=== PATIENT | female | born 1995 | race Caucasian/White ===

== ENCOUNTER 2016-08-24 23:17 | Inpatient (IN) | payer OTHER ==
[~2016-08-24] VITALS: Ht 154.9 cm; Wt 93.4 kg
[2016-08-24 20:17] VITALS: O2SAT 100
[2016-08-24 23:17] VITALS: O2SAT 100
[2016-08-24] MEDS ORDERED: PROPOFOL 1000 MG/100 ML INJ 100 ML ONE (23:23)
[2016-08-24 23:38] VITALS: O2SAT 100
[2016-08-24 23:55] LABS: I-STAT POTASSIUM 3.3 MMOL/L (3.5-4.9); I-STAT SODIUM 145 MMOL/L (138-146)
[2016-08-25] VITALS (24 sets, daily range): BP systolic 105–128; BP diastolic 52–70; PULSE 92–116; RESP 12–18; TEMP 96.8–100.3; O2SAT 99–100
[2016-08-25 00:01] LABS: AUTOMATED NEUTROPHIL # 22.1 TH/MM3 (1.8-7.7); BASOPHIL # 0.1 TH/MM3 (0-0.2); BASOPHIL % 0.3 % (0.0-2.0); EOSINOPHIL # 0.3 TH/MM3 (0-0.4); EOSINOPHIL % 1.1 % (0.0-4.0); HEMATOCRIT 39.5 % (35.0-46.0); LYMPH % 18.2 % (9.0-44.0); LYMPHOCYTE # 5.5 TH/MM3 (1.0-4.8); MEAN CELL VOLUME 85.8 FL (80.0-100.0); MEAN CORPUSCULAR HEMOGLOBIN 28.8 PG (27.0-34.0); MEAN CORPUSCULAR HGB CONC 33.6 % (32.0-36.0); MONO % 6.3 % (0.0-8.0); NEUT % 74.1 % (16.0-70.0); PLATELET COUNT 368 TH/MM3 (150-450); RED BLOOD COUNT 4.61 MIL/MM3 (4.00-5.30); RED CELL DISTRIBUTION WIDTH 13.4 % (11.6-17.2); WHITE BLOOD COUNT 29.9 TH/MM3 (4.0-11.0)
[2016-08-25 00:05] LABS: APTT (PATIENT) 27.4 SEC (24.3-30.1); PROTHROMBIN TIME - PATIENT 10.7 SEC (9.8-11.6)
[2016-08-25] MEDS ORDERED: IOHEXOL 350 MG/ML 10 ML VIAL (for RAD DIAG) IV ONE (00:06)
[2016-08-25 00:09] LABS: HEMO FLAGS AUTO DIFF
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
[2016-08-25] MEDS: SODIUM CHLOR 0.9% 1000 ML INJ 1,000 ML IV SCH ×4 (00:36→20:00)
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
[2016-08-25 00:38] LABS: BANDS 5 % (0-6); BASOPHILS 1 % (0-2); NEUTROPHIL # MANUAL DIFF 19.7 TH/MM3 (1.8-7.7); POLYS (SEG NEUTROPHILS) 61 % (16-70); WBC DIFF SAMPLE 100
[2016-08-25 00:41] LABS: SCAN/DIFF FINAL DIFF MANUAL
[2016-08-25 00:42] LABS: PLATELET ESTIMATE SMEAR NORMAL (NORMAL); PLATELET MORPHOLOGY NORMAL (NORMAL)
[2016-08-25] MEDS ORDERED: ONDANSETRON HCL 4 MG/2 ML VIAL IV PRN (00:45)
[2016-08-25] MEDS ORDERED: MAGNESIUM HYDROXIDE SUSP 30 ML CUP PO PRN (00:45)
[2016-08-25] MEDS ORDERED: ENALAPRILAT 1.25 MG/ML VIAL IV PRN (00:45)
[2016-08-25] MEDS ORDERED: MISCELLANEOUS NURSING INFORMATION XX SCH (00:45)
[2016-08-25] MEDS ORDERED: SODIUM CHLORIDE 0.9% FLUSH 10 ML FLUSH IV FLUSH PRN (00:45)
[2016-08-25] MEDS ORDERED: CHLORHEXIDINE GLUCONATE 2 % 1 PACK (2 CLOTHS) TOP PRN (00:45)
[2016-08-25] MEDS: fentaNYL DRIP 250 ML IV SCH (00:51)
[2016-08-25 01:16] LABS: BLOOD GAS BASE EXCESS -3.1 mmol/L (-2-2); BLOOD GAS CARBOXYHEMOGLOBIN 0.8 % (0-4); BLOOD GAS HCO3 21 mmol/L (22-26); BLOOD GAS O2 HGB SATURATION 98 % (90-100); BLOOD GAS OXYGEN CONTENT 17.6 Vol % (12.0-20.0); BLOOD GAS PCO2 34 mmHg (38-42); BLOOD GAS PO2 395 mmHg (61-120); CRITICAL VALUE NO; OXYGEN DEVICE VENTILATOR; TEMP CORR TO 98.6
[2016-08-25 01:17] LABS: DRAW SITE LT BRACHIAL; FIO2 100 %; NUMBER OF ARTERIAL PUNCTURES 1; STAT NO; ULNAR PULSE PRESENT; VENT SETTINGS PRVC/COMMENT
[2016-08-25] MEDS ORDERED: ACETAMINOPHEN 1000 MG/100 ML VIAL IV ONE (01:30)
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
[2016-08-25] MEDS ORDERED: MAGNESIUM SULFATE INJ 2 GM in SODIUM CHLORIDE 0.9% INJ 96 ML IV PRN (02:30)
[2016-08-25] MEDS ORDERED: POTASSIUM PHOSPHATE MONOBASIC 500 MG TAB PO PRN (02:30)
[2016-08-25] MEDS ORDERED: POTASSIUM PHOSPHATE MONOBASIC 500 MG TAB PO/TUBE PRN (02:30)
[2016-08-25] MEDS ORDERED: SODIUM PHOSPHATE INJ 30 MMOL in SODIUM CHLOR 0.9% 250 ML INJ 240 ML IV PRN (02:30)
[2016-08-25] MEDS ORDERED: MAGNESIUM OXIDE 400 MG TAB PO PRN (02:30)
[2016-08-25] MEDS ORDERED: POTASSIUM CHLORIDE 25 MEQ EFFERVESCENT TAB PO PRN (02:30)
[2016-08-25] MEDS ORDERED: POTASSIUM CHLOR 20 MEQ PREMIX 100 ML IV PRN ×2 (02:30)
[2016-08-25] MEDS ORDERED: MAGNESIUM SULFATE INJ 4 GM in SODIUM CHLORIDE 0.9% INJ 92 ML IV PRN (02:30)
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
[2016-08-25 02:36] LABS: AMPHETAMINE, URINE NEG (NEG); BARBITURATES, URINE NEG (NEG); COCAINE, URINE NEG (NEG)
[2016-08-25] MEDS: CHLORHEXIDINE GLUCONATE 2 % 1 PACK (2 CLOTHS) TOP SCH (03:08)
[2016-08-25] MEDS: levETIRAcetam INJ 500 MG in SODIUM CHLORIDE 0.9% INJ 100 ML IV SCH ×3 (03:11→20:11)
[2016-08-25] MEDS ORDERED: GLUCAGON 1 MG/ML VIAL OTHER PRN (03:30)
[2016-08-25] MEDS: INSULIN ASPART SUPPLEMENTAL SCALE SQ SCH ×4 (03:30→21:30)
[2016-08-25] MEDS ORDERED: DEXTROSE 50% IN WATER 50 ML VIAL(D50) IV PRN (03:30)
[2016-08-25 03:38] LABS: BLOOD GAS BASE EXCESS -2.1 mmol/L (-2-2); BLOOD GAS CARBOXYHEMOGLOBIN 0.9 % (0-4); BLOOD GAS HCO3 21 mmol/L (22-26); BLOOD GAS METHEMOGLOBIN 0.8 % (0-2); BLOOD GAS O2 HGB SATURATION 98 % (90-100); BLOOD GAS OXYGEN CONTENT 15.9 Vol % (12.0-20.0); BLOOD GAS PCO2 31 mmHg (38-42); BLOOD GAS PO2 159 mmHg (61-120); BLOOD GAS TOTAL HGB 11.4 G/DL (12.0-16.0); CRITICAL VALUE NO; OXYGEN DEVICE VENTILATOR; TEMP CORR TO 98.6
[2016-08-25 03:39] LABS: DRAW SITE LT BRACHIAL; FIO2 35 %; NUMBER OF ARTERIAL PUNCTURES 1; STAT NO; ULNAR PULSE PRESENT
[2016-08-25 03:45] LABS: BLOOD, URINE MOD (NEG); GLUCOSE,URINE NEG (NEG); KETONE, URINE NEG (NEG); MUCUS URINE FEW /lpf (OCC); NITRITE,URINE NEG (NEG); PH, URINE 5.5 (5.0-8.5); SQUAMOUS EPITHELIAL CELL URINE <1 /hpf (0-5); URINE COLOR YELLOW (YELLW/STRAW)
[2016-08-25 03:46] LABS: COMMENT (UR) CATH-CULT NOT IND; CULTURE IF INDICATED CATH CULTURE NOT IND
[2016-08-25] MEDS: AMPICILLIN-SULBACTAM INJ 3 GM in SODIUM CHLORIDE 0.9% INJ 100 ML IV SCH ×4 (03:56→21:57)
[2016-08-25 04:48] LABS: ALT (GPT) 40 U/L (10-53); ANION GAP 13 MEQ/L (5-15); AST (GOT) 41 U/L (15-37); BICARBONATE 23.4 MEQ/L (21.0-32.0); BLOOD UREA NITROGEN 7 MG/DL (7-18); CHLORIDE 108 MEQ/L (98-107); GLOMERULAR FILTRATION RATE 124 ML/MIN (>89); POTASSIUM 3.1 MEQ/L (3.5-5.1); SODIUM (NA) 144 MEQ/L (136-145)
[2016-08-25 04:50] LABS: ALKALINE PHOSPHATASE 63 U/L (45-117); TOTAL BILIRUBIN ADULT 0.5 MG/DL (0.2-1.0)
--- NOTE | 2016-08-25 06:15 | RADRPT ---
EXAM DATE/TIME: 08/25/2016 05:56 [place] COMPARISON: CT BRAIN W/O CONTRAST, August 24, 2016, 23:45. INDICATIONS : Follow up intracranial head injury. RADIATION DOSE: 60.02 CTDIvol (mGy) MEDICAL HISTORY : None SURGICAL HISTORY : None. ENCOUNTER: Subsequent ACUITY: 1 day PAIN SCALE: Non-responsive LOCATION: cranial TECHNIQUE: Multiple contiguous axial images were obtained of the head. Using automated exposure control and adj ustment of the mA and/or kV according to patient size, radiation dose was kept as low as reasonably a chievable to obtain optimal diagnostic quality images. FINDINGS: CEREBRUM: There numerous areas of hemorrhage scattered throughout the brain parenchyma. There is clearly more f ocal small areas of hemorrhage than on the previous study. There some layering subarachnoid hemorrhag e in the high parietal regions bilaterally. The most prominent area of hemorrhage is probably in the left frontal lobe with areas a small focal gyriform in appearance subarachnoid Hemorrhage and a small focal area of intraparenchymal hemorrhage. There some minimal hemorrhage in the left ventricle POSTERIOR FOSSA: There is some hemorrhage layering in the pre-peduncular cistern. The 4th ventricle is midline. The cerebellopontine angle is unremarkable. EXTRACRANIAL: The visualized portion of the orbits is intact. SKULL: The calvaria is intact. No evidence of skull fracture. Persistent soft tissue swelling in the left o rbital region CONCLUSION: Innumerable areas of small punctate hemorrhage scattered throughout the brain without a drainable col lection. Combination of mostly small intraparenchymal areas of hemorrhage but some additional areas of subarachnoid hemorrhage and minimal intraventricular layering hemorrhage. Adeel Leal MD on August 25, 2016 at 6:11 Board Certified Radiologist. This report was verified electronically.
[2016-08-25] MEDS: RESP: ALBUTEROL 2.5 MG/IPRATROPIUM 0.5 MG NEB (SCH) NEB ×4 (07:00→20:06)
[2016-08-25] MEDS ORDERED: RESP: ALBUTEROL 2.5 MG/IPRATROPIUM 0.5 MG NEB (PRN) NEB (07:00)
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
[2016-08-25 08:35] LABS: AUTOMATED NEUTROPHIL # 7.7 TH/MM3 (1.8-7.7); BASOPHIL % 0.2 % (0.0-2.0); EOSINOPHIL # 0.1 TH/MM3 (0-0.4); EOSINOPHIL % 0.7 % (0.0-4.0); HEMATOCRIT 38.9 % (35.0-46.0); LYMPH % 16.7 % (9.0-44.0); LYMPHOCYTE # 1.8 TH/MM3 (1.0-4.8); MEAN CELL VOLUME 86.3 FL (80.0-100.0); MEAN CORPUSCULAR HEMOGLOBIN 28.4 PG (27.0-34.0); MEAN CORPUSCULAR HGB CONC 32.9 % (32.0-36.0); MONO % 12.1 % (0.0-8.0); NEUT % 70.3 % (16.0-70.0); PLATELET COUNT 200 TH/MM3 (150-450); RED CELL DISTRIBUTION WIDTH 12.9 % (11.6-17.2); WHITE BLOOD COUNT 10.9 TH/MM3 (4.0-11.0)
[2016-08-25] MEDS: CHLORHEXIDINE 0.12% (ORAL KIT) 15 ML CUP MT SCH ×2 (08:37→20:00)
[2016-08-25 08:38] LABS: HEMO FLAGS AUTO DIFF
[2016-08-25] MEDS: DOCUSATE SODIUM 100 MG CAP PO SCH ×2 (09:25→20:11)
[2016-08-25] MEDS: LACTULOSE SYRUP 20 GM/30 ML CUP PO SCH (09:25)
[2016-08-25] MEDS: RANITIDINE HCL SYRUP 150 MG/10 ML UDC OG-TUBE SCH ×2 (09:26→20:11)
[2016-08-25] MEDS: BACITRACIN TOP OINT 15 GM TUBE TOP SCH ×2 (09:27→20:39)
[2016-08-25] MEDS ORDERED: VANCOMYCIN HCL 1000 MG VIAL ONE (09:58)
[2016-08-25] MEDS ORDERED: GENTAMICIN SULFATE 80 MG/2 ML VIAL ONE (09:58)
[2016-08-25] MEDS ORDERED: SODIUM CHLOR 0.9% 250 ML INJ 250 ML ONE (09:59)
[2016-08-25] MEDS ORDERED: MORPHINE SULFATE 4 MG/ML INJ IV PUSH PRN (10:15)
[2016-08-25] MEDS ORDERED: Post-op Orders (for Pharmacy) MISC XX ONE (10:15)
[2016-08-25] MEDS ORDERED: ceFAZolin 2 GM PREMIX 50 ML IV SCH (10:15)
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
--- NOTE | 2016-08-25 11:43 | PD.OP ---
cc: Denzel Acuna MD Operative Report Date of Surgery: Aug 25, 2016 Preoperative Diagnosis: Right elbow dislocation, open right distal humerus fracture Postoperative Diagnosis: Procedure: Irrigation debridement of open right distal humerus fracture, open treatment of right elbow dislocation, open reduction internal fixation right distal humerus, Surgeon: Denzel Acuna [employer] Weapons Technician(s): LUIS FELIPE Britton PA-C The surgical procedure was assisted by my physician production administrative assistant. My P.A. presence was necessary throughout this case for the manipulation and positioning of the surgical extremity. My P.A. was assisting me throughout the duration of this procedure. The skill set of a physician production administrative assistant was medically necessary to complete this procedure. During the surgical case the surgical coder was working at the back table and the physician production administrative assistant was directly assisting me. Operation and Findings: Patient was seen and evaluated preoperatively. Treatment options were discussed regarding right elbow dislocation and distal humerus fracture including surgical and nonsurgical treatments. After detailed discussion of risk and benefits of procedure patient family wishes to proceed with surgery and informed consent was obtained. I also discussed this case with Dr. Harmon of neurosurgery. Risks of surgery include bleeding, infection, nonunion, malunion , painful hardware, loss of motion of shoulder and elbow, weakness and numbness of arm, ulnar nerve injury as well as medical competitions including blood clots stroke and . Patient was brought to operating room and placed on the OR table. GETA was administered by anesthesiologist. Patient was positioned in lateral decubitus position. The head of the bed was elevated throughout the entirety of the procedure. Extremities were well-padded. Axillary roll was placed. Operative arm and shoulder were prepped with alcohol followed by Hibiclens and draped usual sterile fashion. Timeout procedure was performed. IV antibiotics were given prior to incision. A standard posterior approach was utilized. Subcutaneous tissues was dissected with Bovie. The lateral border of the triceps was elevated off of the distal humerus. Fracture site was visualized. Soft tissue was removed from the fracture site. Fracture site was cleaned with curettes. At this point attention was turned to irrigation debridement of the fracture. There was a puncture wound in the skin. Skin subcutaneous tissue and fascia were sharply debrided with scalpel and rongeur. Curettes were used to debride bone. Overall the wound appeared to be very clean. The wound was now thoroughly irrigated with 3 L of sterile saline. Next was turned to reduction of the elbow joint. The elbow joint was completely dislocated. Gentle traction was applied. The elbow was manipulated. The ulnohumeral joint was reduced. Multiplanar fluoroscopy confirmed concentric reduction. Direct visualization also confirmed reduction. At this point the fracture was reduced using fracture tenaculums. The lateral condyle was manipulated. Fracture keyed into anatomic alignment. K wires were used to hold provisional fixation. Multiplanar fluoroscopy confirmed excellent of fracture. Synthes posterior distal humerus and lateral distal humerus plates were selected. The posterior plate was placed first. 3.5 cortical screws were placed to compress plate to bone. Multiple 2.7 locking screws were placed distally. Care was taken to keep screws from penetrating the articular surface. Multiple screws were placed in each side of the fracture. All screws were predrilled and premeasured for appropriate length. Next the lateral plate was placed along the lateral humerus. Plate was provisionally held to bone with K wires. 3.5 cortical screws were used to compress plate to bone. Additional 2.7 locking screws were placed distally. K wires were removed. Final fluoroscopy revealed excellent alignment of fracture with well-placed hardware. Incision was thoroughly irrigated. Fascia was closed with #1 PDS, subcutaneous tissues closed with 3-0 PDS, and skin was closed with rui. Sterile dressings were applied. Needle and sponge counts were correct. Patient was placed into a sling. At this point the case was turned over to Dr. Harmon of neurosurgery for placement of intracranial pressure monitor. Denzel Acuna MD Aug 25, 2016 11:43
[2016-08-25] MEDS: PROPOFOL 1000 MG/100 ML INJ 100 ML IV SCH (13:34)
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
--- NOTE | 2016-08-25 13:44 | PD.OP ---
Operative Report Date of Surgery: Aug 25, 2016 Preoperative Diagnosis: (1) Traumatic brain injury Traumatic brain injury Postoperative Diagnosis: (1) Traumatic brain injury Traumatic brain injury Procedure: Right frontal twist drill for ICP monitor placement Anesthesia: Gen. Surgeon: Alton Harmon Stitch Bonding Machine Tender Helper(s): None Operation and Findings: The procedure was performed in the operating room. Telephone consent was obtained from the family. Appropriate timeout procedure was performed with all personnel present and in agreement The patient was under general anesthesia during the procedure. The procedure was performed immediately following the patient's orthopedic procedure. The head of the bed was elevated 20 degrees with the head and neck in neutral position. The right frontal area was shaved with clippers and sterilely prepped and draped. 1% Xylocaine with epinephrine was used for local infiltration over the small incision site which was made in the right frontal region approximately 1 cm anterior to the coronal suture in the mid pupillary line and carried sharply down to the cranium. The hand drill was used to place a single twist drill opening in the cranium and the dura was perforated with the 18-gauge spinal needle. The ICP bolt was secured to the cranium. The transducer was zeroed and placed intracranially and secured to the bolt. The patient's initial ICP was 12-15 mm water with good waveform. A sterile dressing was applied There is no significant bleeding The patient's neurologic exam remained stable following the procedure. Alton Harmon MD Aug 25, 2016 13:44
[2016-08-25] MEDS: SODIUM CHLORIDE 23.4% INJ 188 MEQ in SODIUM CHLOR 0.9% 1000 ML INJ 1,000 ML IV SCH ×2 (16:29→19:58)
--- NOTE | 2016-08-25 17:09 | RADRPT ---
EXAM DATE/TIME: 08/25/2016 11:27 [facility] COMPARISON: No previous studies available for comparison. INDICATIONS : ORIF right distal humerus. MEDICAL HISTORY : None. SURGICAL HISTORY : None. ENCOUNTER: Subsequent ACUITY: 2 days PAIN SCORE: Non-responsive. LOCATION: Right distal humerus. FINDINGS: 2 images were recorded digitally in the operating room using C-arm during placement of 2 plates in th e distal lateral humerus. CONCLUSION: Intraoperative images. Elkin Meyers MD on August 25, 2016 at 17:06 Board Certified Radiologist. This report was verified electronically.
[2016-08-25] MEDS ORDERED: fentaNYL CITRATE 250 MCG/5 ML AMP ONE (17:16)
--- NOTE | 2016-08-25 17:48 | PD.PROCEDR ---
Central Line Procedure REASON FOR PROCEDURE Central venous access PROCEDURE PERFORMED Central line placement: L subclavian central line CONSENT Informed consent for procedure was obtained and time out performed. The risks and benefits of the procedure were discussed to include but limited to bleeding , clot formation, infection, and even . ANESTHESIA Local injection of 1% Lidocaine DESCRIPTION OF THE PROCEDURE The patient was placed in supine, mild Trendelenburg position. The area was exposed and cleansed with ChloraPrep, times two. Large sterile drape was used to cover the patient, with the site exposed, under sterile conditions including cap, face mask, sterile gown, and sterile gloves. On single attempt, the introducer needle was inserted with negative pressure in syringe and venous flash was obtained. The guide wire was then advanced without any restriction and the needle was removed. The dilator was used without any complications. Using Seldinger technique the 20 CM 7f triple lumen catheter was advanced over the guide wire to a depth of 18 centimeters. The guide wire was removed. All ports were aspirated with dark venous blood return and flushed easily with sterile saline. All ports were capped. Antibiotic disc was placed around central line at puncture site. The central line was secured to the skin with two interrupted 2.0 silk sutures. The area was bandaged with sterile see- through central line bandage. COMPLICATIONS: No apparent complications ESTIMATED BLOOD LOSS: Less than 1 cc. Jennifer Jimenez MD Aug 25, 2016 17:48
--- NOTE | 2016-08-25 18:05 | RADRPT ---
EXAM DATE/TIME: 08/25/2016 17:36 [facility] COMPARISON: CT THORAX W CONTRAST, August 24, 2016, 23:53. CHEST SINGLE AP, August 24, 2016, 23:30. INDICATIONS : Central line placement. MEDICAL HISTORY : Unobtainable. SURGICAL HISTORY : Unobtainable. ENCOUNTER: Subsequent ACUITY: 1 day PAIN SCORE: Non-responsive. LOCATION: Bilateral chest FINDINGS: Endotracheal tube and nasogastric tube are present in good position. Left subclavian central line ter minates with tip overlying SVC. There is no evidence of pneumothorax or other complication of placeme nt. Mild left base contusion is present. Cardiac contours are stable and satisfactory. CONCLUSION: Satisfactory central line placement. No pneumothorax Tony Navarro MD on August 25, 2016 at 18:01 Board Certified Radiologist. This report was verified electronically.
[2016-08-25 18:30] LABS: BLOOD GAS BASE EXCESS -2.1 mmol/L (-2-2); BLOOD GAS CARBOXYHEMOGLOBIN 1.1 % (0-4); BLOOD GAS HCO3 21 mmol/L (22-26); BLOOD GAS METHEMOGLOBIN 0.9 % (0-2); BLOOD GAS O2 HGB SATURATION 98 % (90-100); BLOOD GAS OXYGEN CONTENT 14.9 Vol % (12.0-20.0); BLOOD GAS PCO2 25 mmHg (38-42); BLOOD GAS PO2 434 mmHg (61-120); TEMP CORR TO 98.6
[2016-08-25 18:31] LABS: CRITICAL VALUE YES; DRAW SITE ART LINE; FIO2 100 %; NUMBER OF ARTERIAL PUNCTURES 0; OXYGEN DEVICE VENTILATOR; STAT NO; ULNAR PULSE PRESENT; VENT SETTINGS PRVC20/450/0.9/+5
[2016-08-25] MEDS ORDERED: ROCURONIUM INJ 50 MG/5 ML VIAL ONE (18:51)
[2016-08-25] MEDS ORDERED: TERBUTALINE INJ 1 MG/ML AMP SQ PRN (19:45)
[2016-08-25] MEDS: NOREPINEPHRINE INJ 4 MG in SODIUM CHLOR 0.9% 250 ML INJ 246 ML IV SCH (20:01)
[2016-08-25] MEDS: ACETAMINOPHEN/HYDROcodone 325 MG/7.5 MG TAB PO PRN (21:59)
[2016-08-26] VITALS (20 sets, daily range): BP systolic 124–149; BP diastolic 56–71; PULSE 82–109; RESP 14–18; TEMP 97.2–98.6; O2SAT 100
[2016-08-26] MEDS: SODIUM CHLOR 0.9% 1000 ML INJ 1,000 ML IV SCH ×3 (03:02→23:18)
[2016-08-26 03:16] LABS: AUTOMATED NEUTROPHIL # 8.2 TH/MM3 (1.8-7.7); BASOPHIL % 0.3 % (0.0-2.0); EOSINOPHIL # 0.2 TH/MM3 (0-0.4); HEMO FLAGS DIFF FINAL; LYMPH % 13.8 % (9.0-44.0); LYMPHOCYTE # 1.5 TH/MM3 (1.0-4.8); MEAN CELL VOLUME 84.9 FL (80.0-100.0); MEAN CORPUSCULAR HEMOGLOBIN 29.2 PG (27.0-34.0); MEAN CORPUSCULAR HGB CONC 34.4 % (32.0-36.0); MONO % 7.4 % (0.0-8.0); NEUT % 76.5 % (16.0-70.0); PLATELET COUNT 176 TH/MM3 (150-450); RED BLOOD COUNT 3.53 MIL/MM3 (4.00-5.30); RED CELL DISTRIBUTION WIDTH 13.6 % (11.6-17.2); WHITE BLOOD COUNT 10.7 TH/MM3 (4.0-11.0)
[2016-08-26] MEDS: RESP: ALBUTEROL 2.5 MG/IPRATROPIUM 0.5 MG NEB (SCH) NEB ×4 (03:27→20:00)
[2016-08-26 03:28] LABS: POTASSIUM 2.6 MEQ/L (3.5-5.1)
[2016-08-26] MEDS: INSULIN ASPART SUPPLEMENTAL SCALE SQ SCH ×4 (03:30→21:27)
[2016-08-26] MEDS: AMPICILLIN-SULBACTAM INJ 3 GM in SODIUM CHLORIDE 0.9% INJ 100 ML IV SCH ×4 (03:57→21:03)
[2016-08-26] MEDS: POTASSIUM CHLOR 40 MEQ PREMIX 100 ML IV PRN ×3 (03:58→17:28)
[2016-08-26] MEDS: CHLORHEXIDINE GLUCONATE 2 % 1 PACK (2 CLOTHS) TOP SCH (04:00)
[2016-08-26 04:12] LABS: BLOOD GAS BASE EXCESS -5.4 mmol/L (-2-2); BLOOD GAS HCO3 18 mmol/L (22-26); BLOOD GAS METHEMOGLOBIN 0.9 % (0-2); BLOOD GAS O2 HGB SATURATION 97 % (90-100); BLOOD GAS OXYGEN CONTENT 13.8 Vol % (12.0-20.0); BLOOD GAS PCO2 26 mmHg (38-42); BLOOD GAS PO2 165 mmHg (61-120); BLOOD GAS TOTAL HGB 9.8 G/DL (12.0-16.0); CRITICAL VALUE NO; OXYGEN DEVICE VENTILATOR; TEMP CORR TO 98.6
[2016-08-26 04:14] LABS: DRAW SITE ART LINE; FIO2 35 %; STAT YES; VENT SETTINGS PRVC/AC
[2016-08-26] MEDS: PROPOFOL 1000 MG/100 ML INJ 100 ML IV SCH ×4 (04:54→12:17)
[2016-08-26] MEDS: fentaNYL DRIP 250 ML IV SCH ×3 (04:54→21:02)
[2016-08-26] MEDS ORDERED: POTASSIUM CHLORIDE 25 MEQ EFFERVESCENT TAB PO ONE (05:00)
--- NOTE | 2016-08-26 05:59 | RADRPT ---
EXAM DATE/TIME: 08/26/2016 05:17 [facility] COMPARISON: CHEST SINGLE AP, August 25, 2016, 17:36. INDICATIONS : Evaluate after respiratory failure. MEDICAL HISTORY : None. SURGICAL HISTORY : None. ENCOUNTER: Subsequent ACUITY: 3 days PAIN SCORE: Non-responsive. LOCATION: Bilateral chest FINDINGS: Lungs remain clear. No pleural effusion. No pneumothorax. Stable, normal heart size. Endotracheal tube tip is approximately 3.5 cm above the mp. Nasogastric tube courses into the sto mach. There is a left subclavian central venous catheter with tip in the superior vena cava. CONCLUSION: No change. Lungs appear clear. Tony Baker MD on August 26, 2016 at 5:56 Board Certified Radiologist. This report was verified electronically.
--- NOTE | 2016-08-26 07:17 | PD.ORT.PN ---
Subjective Subjective Remarks POD 1 s/p ORIF right distal humerus intubated/sedated. nurse reports issues with ICPs overnight Objective Vitals Vital Signs Date Time Temp Pulse Resp B/P Pulse Ox O2 Delivery O2 Flow Rate FiO2 08/26/16 06:00 86 08/26/16 04:10 100 100 08/26/16 04:10 35 08/26/16 04:00 92 08/26/16 04:00 97.5 92 18 144/58 100 08/26/16 04:00 35 08/26/16 02:00 82 08/26/16 01:30 100 35 08/26/16 00:00 83 08/26/16 00:00 98.6 83 18 133/59 100 08/26/16 00:00 35 08/25/16 22:06 100 35 08/25/16 22:00 92 08/25/16 20:05 100 08/25/16 20:05 100 35 08/25/16 20:00 108 08/25/16 20:00 100.3 108 18 128/52 100 08/25/16 20:00 35 08/25/16 19:00 100 Mechanical Ventilator 35 08/25/16 18:30 100 35 08/25/16 18:00 106 08/25/16 16:01 100 35 08/25/16 16:00 98.2 112 12 107/55 100 08/25/16 16:00 112 08/25/16 16:00 35 08/25/16 14:00 108 08/25/16 12:40 99 35 08/25/16 12:30 96.8 116 12 107/55 100 08/25/16 12:30 35 08/25/16 12:30 116 08/25/16 10:00 96 08/25/16 10:00 100 08/25/16 08:04 100 35 08/25/16 08:00 92 08/25/16 08:00 98.2 96 12 105/70 100 08/25/16 08:00 35 08/25/16 07:23 100 35 I/O 08/25/16 08/25/16 08/25/16 08/26/16 08/26/16 08/26/16 07:00 15:00 23:00 07:00 15:00 23:00 Intake Total 1150 ml 859 ml 467 ml 1836 ml Output Total 600 ml 1450 ml 650 ml 975 ml Balance 550 ml -591 ml -183 ml 861 ml Intake IV Total 1150 ml 859 ml 467 ml 1836 ml Output Urine Total 600 ml 1400 ml 650 ml 975 ml Gastric Drainage Total 0 ml 50 ml 0 ml 0 ml # Bowel Movements 0 0 0 0 Result Diagram: 08/26/16 0230 08/26/16 0100 Imaging Last [address] 08/25/16 0600 Signed Impressions: Service Date/Time: August 05:56 - CONCLUSION: Innumerable areas of small punctate hemorrhage scattered throughout the brain without a drainable collection. Combination of mostly small intraparenchymal areas of hemorrhage but some additional areas of subarachnoid hemorrhage and minimal intraventricular layering hemorrhage. Adeel Leal MD Ankle X-Ray 08/25/16 0000 Signed Impressions: Service Date/Time: August 01:20 - CONCLUSION: Unremarkable limited examination of the right ankle except for lateral soft tissue swelling. Adeel Leal MD Maxillofacial CT 08/24/162320 Signed Impressions: Service Date/Time: Wednesday, August 24, 2016 23:45 - CONCLUSION: Normal examination except for marked soft tissue swelling in the left anterior orbital region and maxillary regions without underlying bony fracture. dAeel Leal MD Head CT 08/24/162320 Signed Impressions: Service Date/Time: Wednesday, August 24, 2016 23:45 - CONCLUSION: Multiple areas of hemorrhage scattered the brain parenchyma consistent diffuse axonal injury. No drainable collections are identified. Adeel Leal MD Chest X-Ray 08/24/162320 Signed Impressions: Service Date/Time: Wednesday, August 24, 2016 23:30 - CONCLUSION: Normal examination. Adeel Leal MD Cervical Spine CT 08/24/162320 Signed Impressions: Service Date/Time: Wednesday, August 24, 2016 23:45 - CONCLUSION: Normal examination. Adeel Leal MD Objective Remarks Right upper extremity: Splinted with intact distal pulses and good capillary refills Assessment & Plan Assessment and Plan 1) Right supracondylar humerus fracture with elbow dislocation s/p ORIF - POD 1 -NWB -maintain splint/sling -ortho surgeries complete -continue medical care Joel Casey Aug 26, 2016 07:17
[2016-08-26 07:39] LABS: BICARBONATE 18.9 MEQ/L (21.0-32.0); MAGNESIUM 1.6 MG/DL (1.5-2.5)
[2016-08-26 07:54] LABS: CALCIUM-PROTEIN CORRECTED 8.4 MG/DL (8.5-10.1)
[2016-08-26] MEDS: CHLORHEXIDINE 0.12% (ORAL KIT) 15 ML CUP MT SCH ×2 (08:00→20:51)
[2016-08-26] MEDS: levETIRAcetam INJ 500 MG in SODIUM CHLORIDE 0.9% INJ 100 ML IV SCH ×2 (08:32→21:01)
[2016-08-26] MEDS: RANITIDINE HCL SYRUP 150 MG/10 ML UDC OG-TUBE SCH ×2 (08:32→21:03)
[2016-08-26] MEDS: DOCUSATE SODIUM 100 MG CAP PO SCH ×2 (08:32→21:02)
[2016-08-26] MEDS: LACTULOSE SYRUP 20 GM/30 ML CUP PO SCH (09:00)
[2016-08-26 09:27] LABS: BLOOD GAS BASE EXCESS -6.7 mmol/L (-2-2); BLOOD GAS HCO3 17 mmol/L (22-26); BLOOD GAS METHEMOGLOBIN 0.8 % (0-2); BLOOD GAS O2 HGB SATURATION 98 % (90-100); BLOOD GAS PCO2 28 mmHg (38-42); BLOOD GAS PO2 162 mmHg (61-120); BLOOD GAS TOTAL HGB 9.9 G/DL (12.0-16.0); CRITICAL VALUE NO; TEMP CORR TO 98.6
[2016-08-26 09:28] LABS: FIO2 35 %; OXYGEN DEVICE VENTILATOR; VENT SETTINGS PRVC/AC
[2016-08-26 09:29] LABS: DRAW SITE ART LINE; STAT NO
[2016-08-26] MEDS: BACITRACIN TOP OINT 15 GM TUBE TOP SCH ×2 (11:06→21:04)
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
[2016-08-26 14:18] LABS: POTASSIUM 3.1 MEQ/L (3.5-5.1)
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
[2016-08-26] MEDS: SODIUM CHLORIDE 23.4% INJ 188 MEQ in SODIUM CHLOR 0.9% 1000 ML INJ 1,000 ML IV SCH (16:00)
[2016-08-26] MEDS: NOREPINEPHRINE INJ 4 MG in SODIUM CHLOR 0.9% 250 ML INJ 246 ML IV SCH (18:22)
[2016-08-27] VITALS (18 sets, daily range): BP systolic 116–134; BP diastolic 59–80; PULSE 92–120; RESP 14–20; TEMP 96.8–98.2; O2SAT 100
[2016-08-27] MEDS: POTASSIUM CHLOR 40 MEQ PREMIX 100 ML IV PRN ×2 (01:50→09:45)
[2016-08-27] MEDS: INSULIN ASPART SUPPLEMENTAL SCALE SQ SCH ×2 (03:30→09:30)
[2016-08-27] MEDS: SODIUM CHLORIDE 23.4% INJ 188 MEQ in SODIUM CHLOR 0.9% 1000 ML INJ 1,000 ML IV SCH (03:44)
[2016-08-27] MEDS: NOREPINEPHRINE INJ 4 MG in SODIUM CHLOR 0.9% 250 ML INJ 246 ML IV SCH ×3 (03:44→22:16)
[2016-08-27] MEDS: AMPICILLIN-SULBACTAM INJ 3 GM in SODIUM CHLORIDE 0.9% INJ 100 ML IV SCH ×4 (03:44→21:31)
[2016-08-27] MEDS: CHLORHEXIDINE GLUCONATE 2 % 1 PACK (2 CLOTHS) TOP SCH (03:45)
[2016-08-27] MEDS: RESP: ALBUTEROL 2.5 MG/IPRATROPIUM 0.5 MG NEB (SCH) NEB ×4 (04:43→20:20)
[2016-08-27] MEDS: PROPOFOL 1000 MG/100 ML INJ 100 ML IV SCH ×4 (05:13→17:59)
[2016-08-27 07:20] LABS: SODIUM (NA) 153 MEQ/L (136-145)
--- NOTE | 2016-08-27 07:22 | PD.ORT.PN ---
Subjective Subjective Remarks Intubated. Sedated with critical care Objective Vitals Vital Signs Date Time Temp Pulse Resp B/P Pulse Ox O2 Delivery O2 Flow Rate FiO2 08/27/16 06:00 92 08/27/16 04:43 100 35 08/27/16 04:00 35 08/27/16 04:00 92 08/27/16 04:00 97.2 93 16 116/80 100 08/27/16 02:00 97 08/27/16 00:10 100 35 08/27/16 00:00 97.0 16 129/60 100 08/27/16 00:00 97 08/27/16 00:00 35 08/26/16 22:01 97.2 90 16 126/56 100 08/26/16 22:00 93 08/26/16 20:00 100 35 08/26/16 20:00 100 08/26/16 20:00 35 08/26/16 20:00 100 35 08/26/16 19:00 Mechanical Ventilator 30 08/26/16 18:00 93 08/26/16 16:00 97.5 95 16 124/56 100 08/26/16 16:00 35 08/26/16 16:00 100 08/26/16 15:52 100 35 08/26/16 14:00 96 08/26/16 12:00 95 08/26/16 12:00 35 08/26/16 12:00 97.5 92 16 124/56 100 08/26/16 11:17 100 35 08/26/16 10:00 84 08/26/16 09:15 100 35 08/26/16 09:00 97.2 109 17 149/68 100 08/26/16 09:00 35 08/26/16 08:00 101 08/26/16 08:00 97.3 94 14 148/71 100 08/26/16 07:46 100 35 08/26/16 07:46 100 35 I/O 08/26/16 08/26/16 08/26/16 08/27/16 08/27/16 08/27/16 07:00 15:00 23:00 07:00 15:00 23:00 Intake Total 1836 ml 2285 ml 1300 ml 1286 ml Output Total 975 ml 1825 ml 1850 ml 1355 ml Balance 861 ml 460 ml -550 ml -69 ml Intake IV Total 1836 ml 2201 ml 1165 ml 1144 ml Tube Feeding 84 ml 135 ml 142 ml Output Urine Total 975 ml 1825 ml 1850 ml 1355 ml Gastric Drainage Total 0 ml Tube Feeding Residual Discard 0 ml 0 ml # Bowel Movements 0 Result Diagram: 08/26/16 0230 08/27/16 0635 Imaging Last [address] 08/25/16 0600 Signed Impressions: Service Date/Time: August 05:56 - CONCLUSION: Innumerable areas of small punctate hemorrhage scattered throughout the brain without a drainable collection. Combination of mostly small intraparenchymal areas of hemorrhage but some additional areas of subarachnoid hemorrhage and minimal intraventricular layering hemorrhage. Adeel Leal MD Ankle X-Ray 08/25/16 0000 Signed Impressions: Service Date/Time: August 01:20 - CONCLUSION: Unremarkable limited examination of the right ankle except for lateral soft tissue swelling. Adeel Leal MD Maxillofacial CT 08/24/162320 Signed Impressions: Service Date/Time: Wednesday, August 24, 2016 23:45 - CONCLUSION: Normal examination except for marked soft tissue swelling in the left anterior orbital region and maxillary regions without underlying bony fracture. Adeel Leal MD Head CT 08/24/162320 Signed Impressions: Service Date/Time: Wednesday, August 24, 2016 23:45 - CONCLUSION: Multiple areas of hemorrhage scattered the brain parenchyma consistent diffuse axonal injury. No drainable collections are identified. Adeel Leal MD Chest X-Ray 08/24/162320 Signed Impressions: Service Date/Time: Wednesday, August 24, 2016 23:30 - CONCLUSION: Normal examination. Adeel Leal MD Cervical Spine CT 08/24/162320 Signed Impressions: Service Date/Time: Wednesday, August 24, 2016 23:45 - CONCLUSION: Normal examination. Adeel Leal MD Objective Remarks Right upper extremity: Splinted with intact distal pulses and good capillary refills Assessment & Plan Assessment and Plan 1) Right supracondylar humerus fracture with elbow dislocation s/p ORIF - POD 2 -NWB -maintain splint/sling -ortho surgeries complete -continue medical care Follow-up x-rays in 2 weeks Frank Real Jr. Aug 27, 2016 07:22
[2016-08-27] MEDS: fentaNYL DRIP 250 ML IV SCH ×2 (07:28→15:37)
[2016-08-27 07:59] LABS: HEMATOCRIT 31.3 % (35.0-46.0); MEAN CELL VOLUME 86.7 FL (80.0-100.0); MEAN CORPUSCULAR HEMOGLOBIN 28.3 PG (27.0-34.0); MEAN CORPUSCULAR HGB CONC 32.7 % (32.0-36.0); PLATELET COUNT 170 TH/MM3 (150-450); RED BLOOD COUNT 3.62 MIL/MM3 (4.00-5.30); RED CELL DISTRIBUTION WIDTH 13.8 % (11.6-17.2); REVIEW FLAG FINAL; WHITE BLOOD COUNT 10.2 TH/MM3 (4.0-11.0)
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
[2016-08-27] MEDS: CHLORHEXIDINE 0.12% (ORAL KIT) 15 ML CUP MT SCH ×2 (08:36→20:00)
[2016-08-27] MEDS: RANITIDINE HCL SYRUP 150 MG/10 ML UDC OG-TUBE SCH ×2 (08:41→21:32)
[2016-08-27] MEDS: levETIRAcetam INJ 500 MG in SODIUM CHLORIDE 0.9% INJ 100 ML IV SCH ×2 (08:41→21:31)
[2016-08-27] MEDS: LACTULOSE SYRUP 20 GM/30 ML CUP PO SCH (08:41)
[2016-08-27] MEDS: BACITRACIN TOP OINT 15 GM TUBE TOP SCH ×2 (08:42→21:00)
[2016-08-27] MEDS: DOCUSATE SODIUM 100 MG CAP PO SCH ×2 (08:42→21:30)
[2016-08-27] MEDS ORDERED: BISACODYL 10 MG SUPP RECTAL ONE (08:45)
[2016-08-27 08:57] LABS: BLOOD UREA NITROGEN LESS THAN 1 MG/DL (7-18); GLOMERULAR FILTRATION RATE 204 ML/MIN (>89)
[2016-08-27 08:58] LABS: ANION GAP 13 MEQ/L (5-15); BICARBONATE 16.3 MEQ/L (21.0-32.0); CHLORIDE 124 MEQ/L (98-107); POTASSIUM 3.4 MEQ/L (3.5-5.1)
[2016-08-27 10:41] LABS: BLOOD GAS BASE EXCESS -7.4 mmol/L (-2-2); BLOOD GAS CARBOXYHEMOGLOBIN 0.8 % (0-4); BLOOD GAS HCO3 17 mmol/L (22-26); BLOOD GAS METHEMOGLOBIN 0.8 % (0-2); BLOOD GAS O2 HGB SATURATION 98 % (90-100); BLOOD GAS OXYGEN CONTENT 15.3 Vol % (12.0-20.0); BLOOD GAS PCO2 29 mmHg (38-42); BLOOD GAS PO2 171 mmHg (61-120); BLOOD GAS TOTAL HGB 10.8 G/DL (12.0-16.0); CRITICAL VALUE NO; OXYGEN DEVICE VENTILATOR; TEMP CORR TO 98.6
[2016-08-27 10:42] LABS: DRAW SITE ART LINE; FIO2 35 %; STAT NO; VENT SETTINGS PRVC/AC
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
[2016-08-27] MEDS: POTASSIUM PHOSPHATE INJ 30 MMOL in SODIUM CHLOR 0.9% 250 ML INJ 250 ML IV PRN (11:26)
[2016-08-27] MEDS ORDERED: SODIUM CHLOR 0.9% 1000 ML INJ 1,000 ML IV ONE (12:15)
[2016-08-27] MEDS: SODIUM CHLOR 0.9% 1000 ML INJ 1,000 ML IV SCH ×3 (13:54→16:38)
[2016-08-27] MEDS ORDERED: MIDAZOLAM HCL 5 MG/ML VIAL (1 ML) IV PUSH STA (14:37)
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
[2016-08-27] MEDS ORDERED: diphenhydrAMINE HCL 50 MG/ML VIAL IV ONE (18:15)
[2016-08-27] MEDS ORDERED: MIDAZOLAM HCL 2 MG/2 ML VIAL IV PUSH ONE ×2 (22:00)
[2016-08-27] MEDS ORDERED: MIDAZOLAM HCL 2 MG/2 ML VIAL IV PUSH PRN (22:00)
[2016-08-28] VITALS (17 sets, daily range): BP systolic 116–132; BP diastolic 50–60; PULSE 104–111; RESP 14–16; TEMP 97.4–98.1; O2SAT 100
[2016-08-28] MEDS: fentaNYL DRIP 250 ML IV SCH ×3 (01:03→17:13)
[2016-08-28] MEDS: PROPOFOL 1000 MG/100 ML INJ 100 ML IV SCH ×6 (01:03→17:12)
[2016-08-28] MEDS: RESP: ALBUTEROL 2.5 MG/IPRATROPIUM 0.5 MG NEB (SCH) NEB ×4 (03:09→20:09)
[2016-08-28] MEDS: NOREPINEPHRINE INJ 4 MG in SODIUM CHLOR 0.9% 250 ML INJ 246 ML IV SCH ×3 (03:30→19:57)
[2016-08-28] MEDS: CHLORHEXIDINE GLUCONATE 2 % 1 PACK (2 CLOTHS) TOP SCH (04:00)
[2016-08-28 04:18] LABS: AUTOMATED NEUTROPHIL # 8.3 TH/MM3 (1.8-7.7); BASOPHIL % 0.1 % (0.0-2.0); EOSINOPHIL # 0.6 TH/MM3 (0-0.4); EOSINOPHIL % 5.5 % (0.0-4.0); HEMATOCRIT 30.2 % (35.0-46.0); HEMO FLAGS DIFF FINAL; LYMPH % 8.8 % (9.0-44.0); LYMPHOCYTE # 0.9 TH/MM3 (1.0-4.8); MEAN CELL VOLUME 85.9 FL (80.0-100.0); MEAN CORPUSCULAR HEMOGLOBIN 28.6 PG (27.0-34.0); MEAN CORPUSCULAR HGB CONC 33.3 % (32.0-36.0); MONO % 5.9 % (0.0-8.0); NEUT % 79.7 % (16.0-70.0); PLATELET COUNT 172 TH/MM3 (150-450); RED BLOOD COUNT 3.51 MIL/MM3 (4.00-5.30); RED CELL DISTRIBUTION WIDTH 13.7 % (11.6-17.2); WHITE BLOOD COUNT 10.4 TH/MM3 (4.0-11.0)
[2016-08-28] MEDS: SODIUM CHLOR 0.9% 1000 ML INJ 1,000 ML IV SCH ×2 (04:43→15:26)
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
--- NOTE | 2016-08-28 05:05 | RADRPT ---
EXAM DATE/TIME: 08/28/2016 03:54 [facility] COMPARISON: CHEST SINGLE AP, August 26, 2016, 5:17. INDICATIONS : Shortness of breath, possible pulmonary disease. MEDICAL HISTORY : None. SURGICAL HISTORY : None. ENCOUNTER: Subsequent ACUITY: 3 days PAIN SCORE: Non-responsive. LOCATION: Bilateral chest FINDINGS: A single AP semierect view the chest was obtained and demonstrates the endotracheal tube in place the tip approximately 2 cm above the mp. There is a nasogastric tube again noted coursing through th e esophagus into the stomach. The left subclavian central venous line remains in place. There are no confluent infiltrates or effusions. The heart size is within normal limits. There are multiple overly ing electrocardiogram leads and oxygen tubing. CONCLUSION: No significant change. Frank Santoyo MD on August 28, 2016 at 5:03 Board Certified Radiologist. This report was verified electronically.
[2016-08-28 05:08] LABS: ALKALINE PHOSPHATASE 59 U/L (45-117); ALT (GPT) 22 U/L (10-53); ANION GAP 10 MEQ/L (5-15); AST (GOT) 25 U/L (15-37); BICARBONATE 21.1 MEQ/L (21.0-32.0); BLOOD UREA NITROGEN LESS THAN 1 MG/DL (7-18); CHLORIDE 124 MEQ/L (98-107); GLOMERULAR FILTRATION RATE 177 ML/MIN (>89); POTASSIUM 3.1 MEQ/L (3.5-5.1); SODIUM (NA) 155 MEQ/L (136-145); TOTAL BILIRUBIN ADULT 0.5 MG/DL (0.2-1.0)
[2016-08-28 06:01] LABS: BLOOD GAS BASE EXCESS -6.7 mmol/L (-2-2); BLOOD GAS CARBOXYHEMOGLOBIN 0.8 % (0-4); BLOOD GAS HCO3 18 mmol/L (22-26); BLOOD GAS METHEMOGLOBIN 0.8 % (0-2); BLOOD GAS O2 HGB SATURATION 96 % (90-100); BLOOD GAS OXYGEN CONTENT 14.3 Vol % (12.0-20.0); BLOOD GAS PCO2 35 mmHg (38-42); BLOOD GAS PO2 114 mmHg (61-120); BLOOD GAS TOTAL HGB 10.4 G/DL (12.0-16.0); CRITICAL VALUE NO; DRAW SITE RT BRACHIAL; FIO2 35 %; NUMBER OF ARTERIAL PUNCTURES 1; OXYGEN DEVICE VENTILATOR; STAT NO; TEMP CORR TO 98.6; ULNAR PULSE PRESENT; VENT SETTINGS PRVC/AC
[2016-08-28] MEDS: POTASSIUM CHLOR 40 MEQ PREMIX 100 ML IV PRN ×5 (06:23→22:27)
--- NOTE | 2016-08-28 07:51 | PD.ORT.PN ---
Subjective Subjective Remarks POD 3 s/p ORIF right distal humerus intubated/sedated. nurse reports issues with ICPs. no changes Objective Vitals Vital Signs Date Time Temp Pulse Resp B/P Pulse Ox O2 Delivery O2 Flow Rate FiO2 08/28/16 06:00 110 08/28/16 04:15 100 100 08/28/16 04:02 100 35 08/28/16 04:00 110 08/28/16 04:00 35 08/28/16 04:00 97.9 110 14 122/55 100 08/28/16 02:00 104 08/28/16 01:05 100 35 08/28/16 01:05 100 35 08/28/16 00:00 35 08/28/16 00:00 97.8 104 14 128/57 100 08/28/16 00:00 104 08/27/16 23:00 35 08/27/16 22:00 110 08/27/16 20:21 100 35 08/27/16 20:00 35 08/27/16 20:00 98 08/27/16 20:00 97.8 94 14 124/59 100 08/27/16 19:00 100 Mechanical Ventilator 35 08/27/16 18:00 106 08/27/16 16:39 100 35 08/27/16 16:00 35 08/27/16 16:00 109 08/27/16 16:00 98.2 120 14 134/60 100 08/27/16 14:00 120 08/27/16 12:00 96.8 105 14 117/62 100 08/27/16 12:00 101 08/27/16 12:00 35 08/27/16 11:21 100 35 08/27/16 10:00 106 08/27/16 08:13 100 35 08/27/16 08:00 35 08/27/16 08:00 97.3 104 20 130/80 100 08/27/16 08:00 98 I/O 08/27/16 08/27/16 08/27/16 08/28/16 08/28/16 08/28/16 07:00 15:00 23:00 07:00 15:00 23:00 Intake Total 1286 ml 3047 ml 5236 ml 1226 ml Output Total 1355 ml 1400 ml 3600 ml 950 ml Balance -69 ml 1647 ml 1636 ml 276 ml Intake IV Total 1144 ml 2876 ml 5050 ml 1138 ml Tube Feeding 142 ml 171 ml 186 ml 88 ml Output Urine Total 1355 ml 1400 ml 3600 ml 950 ml Tube Feeding Residual Discard 0 ml # Bowel Movements 0 0 0 Result Diagram: 08/28/16 0400 08/28/16 0400 Imaging Last [address] 08/25/16 0600 Signed Impressions: Service Date/Time: August 05:56 - CONCLUSION: Innumerable areas of small punctate hemorrhage scattered throughout the brain without a drainable collection. Combination of mostly small intraparenchymal areas of hemorrhage but some additional areas of subarachnoid hemorrhage and minimal intraventricular layering hemorrhage. Adeel Leal MD Ankle X-Ray 08/25/16 0000 Signed Impressions: Service Date/Time: August 01:20 - CONCLUSION: Unremarkable limited examination of the right ankle except for lateral soft tissue swelling. Adeel Leal MD Maxillofacial CT 08/24/162320 Signed Impressions: Service Date/Time: Wednesday, August 24, 2016 23:45 - CONCLUSION: Normal examination except for marked soft tissue swelling in the left anterior orbital region and maxillary regions without underlying bony fracture. Adeel Leal MD Head CT 08/24/162320 Signed Impressions: Service Date/Time: Wednesday, August 24, 2016 23:45 - CONCLUSION: Multiple areas of hemorrhage scattered the brain parenchyma consistent diffuse axonal injury. No drainable collections are identified. Adeel Leal MD Chest X-Ray 08/24/162320 Signed Impressions: Service Date/Time: Wednesday, August 24, 2016 23:30 - CONCLUSION: Normal examination. Adeel Leal MD Cervical Spine CT 08/24/162320 Signed Impressions: Service Date/Time: Wednesday, August 24, 2016 23:45 - CONCLUSION: Normal examination. Adeel Leal MD Objective Remarks Right upper extremity: Splinted with intact distal pulses and good capillary refills Assessment & Plan Assessment and Plan 1) Right supracondylar humerus fracture with elbow dislocation s/p ORIF - POD 3 -NWB -maintain splint/sling -ortho surgeries complete -continue medical care Follow-up x-rays in 2 weeks Casey,Joel Kathie PA Aug 28, 2016 07:51
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
[2016-08-28] MEDS: BACITRACIN TOP OINT 15 GM TUBE TOP SCH ×2 (09:00→20:05)
[2016-08-28] MEDS: LACTULOSE SYRUP 20 GM/30 ML CUP PO SCH (09:20)
[2016-08-28] MEDS: DOCUSATE SODIUM 100 MG CAP PO SCH ×2 (09:20→20:04)
[2016-08-28] MEDS: ALBUMIN HUMAN 5% 25 GM/500 ML BOTTLE IV SCH ×2 (09:20→20:04)
[2016-08-28] MEDS: levETIRAcetam INJ 500 MG in SODIUM CHLORIDE 0.9% INJ 100 ML IV SCH ×2 (09:21→20:04)
[2016-08-28] MEDS: RANITIDINE HCL SYRUP 150 MG/10 ML UDC OG-TUBE SCH ×2 (09:21→20:04)
[2016-08-28] MEDS: CHLORHEXIDINE 0.12% (ORAL KIT) 15 ML CUP MT SCH ×2 (09:22→20:05)
[2016-08-28] MEDS ORDERED: MIDAZOLAM HCL 5 MG/ML VIAL (1 ML) ONE (09:53)
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
[2016-08-28] MEDS: SODIUM CHLORIDE 23.4% INJ 188 MEQ in SODIUM CHLOR 0.9% 1000 ML INJ 1,000 ML IV SCH (12:37)
[2016-08-28 12:45] LABS: POTASSIUM 3.4 MEQ/L (3.5-5.1)
[2016-08-28] MEDS ORDERED: MIDAZOLAM HCL 5 MG/ML VIAL (1 ML) IV ONE (17:00)
[2016-08-28] MEDS: MIDAZOLAM 100 MG/NS 100 ML DRIP Premix IV SCH (17:13)
[2016-08-28 21:25] LABS: POTASSIUM 3.1 MEQ/L (3.5-5.1)
[2016-08-29] VITALS (19 sets, daily range): BP systolic 119–136; BP diastolic 58–63; PULSE 102–121; RESP 14–17; TEMP 98.3–99.5; O2SAT 100
[2016-08-29] MEDS: PROPOFOL 1000 MG/100 ML INJ 100 ML IV SCH ×7 (00:13→22:46)
[2016-08-29] MEDS: NOREPINEPHRINE INJ 4 MG in SODIUM CHLOR 0.9% 250 ML INJ 246 ML IV SCH ×5 (00:13→22:47)
[2016-08-29] MEDS: MIDAZOLAM 100 MG/NS 100 ML DRIP Premix IV SCH ×3 (00:14→20:39)
[2016-08-29] MEDS: RESP: ALBUTEROL 2.5 MG/IPRATROPIUM 0.5 MG NEB (SCH) NEB (03:37)
[2016-08-29] MEDS: CHLORHEXIDINE GLUCONATE 2 % 1 PACK (2 CLOTHS) TOP SCH (04:00)
[2016-08-29] MEDS: fentaNYL DRIP 250 ML IV SCH ×3 (04:15→22:46)
--- NOTE | 2016-08-29 04:24 | RADRPT ---
EXAM DATE/TIME: 08/29/2016 03:29 [place] COMPARISON: CHEST SINGLE AP, August 28, 2016, 3:54. INDICATIONS : Short of breath. MEDICAL HISTORY : None. SURGICAL HISTORY : None. ENCOUNTER: Subsequent ACUITY: 4 - 6 days PAIN SCORE: 0/10 LOCATION: Bilateral chest FINDINGS: Lines and tubes are present not significantly changed. Minimal bibasilar atelectasis may be present. The rest of the examination has not significantly changed. CONCLUSION: No appreciable change. Kenyetta Stapleton MD on August 29, 2016 at 4:22 Board Certified Radiologist. This report was verified electronically.
[2016-08-29 05:48] LABS: AUTOMATED NEUTROPHIL # 8.4 TH/MM3 (1.8-7.7); BASOPHIL % 0.1 % (0.0-2.0); EOSINOPHIL # 0.7 TH/MM3 (0-0.4); EOSINOPHIL % 6.1 % (0.0-4.0); HEMATOCRIT 27.5 % (35.0-46.0); HEMO FLAGS DIFF FINAL; LYMPH % 8.3 % (9.0-44.0); LYMPHOCYTE # 0.9 TH/MM3 (1.0-4.8); MEAN CELL VOLUME 86.8 FL (80.0-100.0); MEAN CORPUSCULAR HEMOGLOBIN 28.2 PG (27.0-34.0); MEAN CORPUSCULAR HGB CONC 32.4 % (32.0-36.0); MONO % 6.1 % (0.0-8.0); NEUT % 79.4 % (16.0-70.0); PLATELET COUNT 178 TH/MM3 (150-450); RED BLOOD COUNT 3.16 MIL/MM3 (4.00-5.30); RED CELL DISTRIBUTION WIDTH 13.7 % (11.6-17.2); WHITE BLOOD COUNT 10.6 TH/MM3 (4.0-11.0)
[2016-08-29 05:50] LABS: BLOOD GAS BASE EXCESS -7.1 mmol/L (-2-2); BLOOD GAS CARBOXYHEMOGLOBIN 1.1 % (0-4); BLOOD GAS HCO3 17 mmol/L (22-26); BLOOD GAS O2 HGB SATURATION 97 % (90-100); BLOOD GAS OXYGEN CONTENT 12.9 Vol % (12.0-20.0); BLOOD GAS PCO2 28 mmHg (38-42); BLOOD GAS PO2 128 mmHg (61-120); BLOOD GAS TOTAL HGB 9.3 G/DL (12.0-16.0); CRITICAL VALUE NO; OXYGEN DEVICE VENTILATOR; TEMP CORR TO 98.6
[2016-08-29 05:51] LABS: DRAW SITE LT RADIAL; FIO2 35 %; NUMBER OF ARTERIAL PUNCTURES 1; STAT NO; ULNAR PULSE PRESENT; VENT SETTINGS PRVC/AC
[2016-08-29] MEDS ORDERED: HYDROmorphone HCL PF 2 MG/ML VIAL IV PUSH ONE (06:00)
[2016-08-29 06:24] LABS: ALKALINE PHOSPHATASE 59 U/L (45-117); ALT (GPT) 22 U/L (10-53); ANION GAP 10 MEQ/L (5-15); AST (GOT) 21 U/L (15-37); BICARBONATE 19.8 MEQ/L (21.0-32.0); BLOOD UREA NITROGEN LESS THAN 1 MG/DL (7-18); CHLORIDE 129 MEQ/L (98-107); GLOMERULAR FILTRATION RATE 122 ML/MIN (>89); TOTAL BILIRUBIN ADULT 0.9 MG/DL (0.2-1.0)
[2016-08-29] MEDS ORDERED: CISATRACURIUM BESYLATE 20 MG/10 ML VIAL IVP ONE ×2 (06:30→08:30)
[2016-08-29 06:42] LABS: SODIUM (NA) 159 MEQ/L (136-145)
[2016-08-29] MEDS: POTASSIUM CHLOR 40 MEQ PREMIX 100 ML IV PRN ×4 (06:48→20:39)
--- NOTE | 2016-08-29 07:06 | PD.ORT.PN ---
Subjective Subjective Remarks Intubated. Sedated with critical care Objective Vitals Vital Signs Date Time Temp Pulse Resp B/P Pulse Ox O2 Delivery O2 Flow Rate FiO2 08/29/16 06:00 106 08/29/16 04:00 110 08/29/16 04:00 98.3 16 129/60 100 08/29/16 04:00 35 08/29/16 03:38 100 35 08/29/16 03:00 102 08/29/16 02:00 103 08/29/16 00:02 100 35 08/29/16 00:00 98.8 105 16 126/60 100 08/29/16 00:00 105 08/29/16 00:00 35 08/28/16 22:00 111 08/28/16 20:10 100 35 08/28/16 20:10 100 35 08/28/16 20:00 98.1 106 16 129/59 100 08/28/16 20:00 35 08/28/16 20:00 100 Mechanical Ventilator 35 08/28/16 20:00 107 08/28/16 19:00 100 Mechanical Ventilator 35 08/28/16 16:57 100 35 08/28/16 16:00 35 08/28/16 16:00 98.1 104 14 132/60 100 08/28/16 12:19 100 35 08/28/16 12:00 98.1 105 14 129/58 100 08/28/16 12:00 35 08/28/16 10:00 108 08/28/16 08:00 97.4 105 14 116/50 100 Arterial Line 08/28/16 08:00 35 08/28/16 07:46 100 35 I/O 08/28/16 08/28/16 08/28/16 08/29/16 08/29/16 08/29/16 07:00 15:00 23:00 07:00 15:00 23:00 Intake Total 1226 ml 2987 ml 2154 ml 1934 ml Output Total 950 ml 2000 ml 2170.0 ml 1700 ml Balance 276 ml 987 ml -16.0 ml 234 ml Intake IV Total 1138 ml 2696 ml 1942 ml 1618 ml Tube Feeding 88 ml 291 ml 212 ml 316 ml Output Urine Total 950 ml 2000 ml 2050 ml 1700 ml Stool Total 0 ml Gastric Drainage Total 60 ml Tube Feeding Residual Discard 60.0 ml 0 ml # Bowel Movements 0 Result Diagram: 08/29/16 0515 08/29/16 0515 Imaging Last [address] 08/25/16 0600 Signed Impressions: Service Date/Time: August 05:56 - CONCLUSION: Innumerable areas of small punctate hemorrhage scattered throughout the brain without a drainable collection. Combination of mostly small intraparenchymal areas of hemorrhage but some additional areas of subarachnoid hemorrhage and minimal intraventricular layering hemorrhage. Adeel Leal MD Ankle X-Ray 08/25/16 0000 Signed Impressions: Service Date/Time: August 01:20 - CONCLUSION: Unremarkable limited examination of the right ankle except for lateral soft tissue swelling. Adeel Leal MD Maxillofacial CT 08/24/162320 Signed Impressions: Service Date/Time: Wednesday, August 24, 2016 23:45 - CONCLUSION: Normal examination except for marked soft tissue swelling in the left anterior orbital region and maxillary regions without underlying bony fracture. Adeel Leal MD Head CT 08/24/162320 Signed Impressions: Service Date/Time: Wednesday, August 24, 2016 23:45 - CONCLUSION: Multiple areas of hemorrhage scattered the brain parenchyma consistent diffuse axonal injury. No drainable collections are identified. Adeel Leal MD Chest X-Ray 08/24/162320 Signed Impressions: Service Date/Time: Wednesday, August 24, 2016 23:30 - CONCLUSION: Normal examination. Adeel Leal MD Cervical Spine CT 08/24/162320 Signed Impressions: Service Date/Time: Wednesday, August 24, 2016 23:45 - CONCLUSION: Normal examination. Adeel Leal MD Objective Remarks Right upper extremity: Splinted with intact distal pulses and good capillary refills Assessment & Plan Assessment and Plan 1) Right supracondylar humerus fracture with elbow dislocation s/p ORIF - POD 4 -NWB -maintain splint/sling -ortho surgeries complete -continue medical care Follow-up x-rays in 2 weeks Frank Real Jr. Aug 29, 2016 07:06
[2016-08-29] MEDS: CHLORHEXIDINE 0.12% (ORAL KIT) 15 ML CUP MT SCH ×2 (07:51→20:00)
[2016-08-29] MEDS: POTASSIUM PHOSPHATE INJ 30 MMOL in SODIUM CHLOR 0.9% 250 ML INJ 250 ML IV PRN (07:51)
[2016-08-29] MEDS: BACITRACIN TOP OINT 15 GM TUBE TOP SCH ×2 (08:02→20:41)
[2016-08-29] MEDS: RANITIDINE HCL SYRUP 150 MG/10 ML UDC OG-TUBE SCH ×2 (08:02→20:38)
[2016-08-29] MEDS: LACTULOSE SYRUP 20 GM/30 ML CUP PO SCH (08:02)
[2016-08-29] MEDS: diphenhydrAMINE HCL 50 MG/ML VIAL IV PUSH SCH ×3 (08:02→20:38)
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
[2016-08-29] MEDS: levETIRAcetam INJ 500 MG in SODIUM CHLORIDE 0.9% INJ 100 ML IV SCH ×2 (08:03→20:39)
[2016-08-29] MEDS: DOCUSATE SODIUM 100 MG CAP PO SCH ×2 (08:03→20:38)
[2016-08-29] MEDS: CISATRACURIUM INJ 100 MG in SODIUM CHLOR 0.9% 250 ML INJ 240 ML IV SCH ×4 (08:39→22:46)
[2016-08-29] MEDS: SODIUM CHLOR 0.9% 1000 ML INJ 1,000 ML IV SCH (09:18)
[2016-08-29 10:14] LABS: BLOOD GAS BASE EXCESS -7.4 mmol/L (-2-2); BLOOD GAS CARBOXYHEMOGLOBIN 1.1 % (0-4); BLOOD GAS HCO3 17 mmol/L (22-26); BLOOD GAS METHEMOGLOBIN 0.9 % (0-2); BLOOD GAS O2 HGB SATURATION 97 % (90-100); BLOOD GAS PCO2 28 mmHg (38-42); BLOOD GAS PO2 128 mmHg (61-120); BLOOD GAS TOTAL HGB 10.8 G/DL (12.0-16.0); TEMP CORR TO 98.6
[2016-08-29 10:15] LABS: CRITICAL VALUE NO; DRAW SITE LT BRACHIAL; FIO2 35 %; NUMBER OF ARTERIAL PUNCTURES 1; OXYGEN DEVICE VENTILATOR; STAT NO; ULNAR PULSE PRESENT; VENT SETTINGS 16/450/PEEP5/0.9
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
[2016-08-29] MEDS ORDERED: SODIUM BICARBONATE 8.4% INJ 50 MEQ/50 ML SYR IV PUSH ONE ×2 (12:00)
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
[2016-08-29] MEDS ORDERED: IOHEXOL 350 MG/ML 10 ML VIAL (for RAD DIAG) IV ONE (15:06)
--- NOTE | 2016-08-29 15:22 | RADRPT ---
EXAM DATE/TIME: 08/29/2016 14:46 [facility] COMPARISON: CT BRAIN W/O CONTRAST, August 28, 2016, 4:25. INDICATIONS : Evaluate for Hemorrhage/ edema. RADIATION DOSE: 32.92 CTDIvol (mGy) MEDICAL HISTORY : None SURGICAL HISTORY : None. ENCOUNTER: Initial ACUITY: 1 day PAIN SCALE: 0/10 LOCATION: Cranial TECHNIQUE: Multiple contiguous axial images were obtained of the head. Using automated exposure control and adj ustment of the mA and/or kV according to patient size, radiation dose was kept as low as reasonably a chievable to obtain optimal diagnostic quality images. FINDINGS: There is no significant change in the appearance of the scattered petechial hemorrhages within the fr ontal lobes and parietal lobes bilaterally. A small amount of acute subarachnoid hemorrhage is also a gain noted within the right high parietal region. Intracranial pressure monitor is again noted withi n the right frontal region. There is no midline shift. There is a questionable area of tiny acute s ubdural hematoma along the left high parietal parafalcine region measuring 9 mm in greatest dimension . The ventricles, sulci and cisterns are stable. CONCLUSION: Stable acute petechial intraparenchymal hemorrhages within the frontal lobes and high parietal lobes bilaterally as well as stable acute subarachnoid hemorrhage within the right high parietal region and probable tiny acute subdural hematoma within the left parafalcine region measuring 9 mm in greatest dimension. Simone Mayfield MD on August 29, 2016 at 15:05 Board Certified Radiologist. This report was verified electronically.
[2016-08-29] MEDS: SODIUM CHLORIDE 23.4% INJ 188 MEQ in SODIUM CHLOR 0.9% 1000 ML INJ 1,000 ML IV SCH (15:30)
--- NOTE | 2016-08-29 16:04 | RADRPT ---
EXAM DATE/TIME: 08/29/2016 14:46 [facility] COMPARISON: CT BRAIN W/O CONTRAST, August 28, 2016, 4:25. INDICATIONS : Evaluate for Hemorrhage/ edema. IV CONTRAST: 75 cc Omnipaque 350 (iohexol) IV RADIATION DOSE: 45.40 CTDIvol (mGy) ; Combined studies MEDICAL HISTORY : None SURGICAL HISTORY : None. ENCOUNTER: Initial ACUITY: 1 day PAIN SCALE: LOCATION: distal TECHNIQUE: Volumetric scanning was performed using a multi-row detector CT scanner. The data was post processed with a variety of visualization algorithms including full volume maximum intensity projection, multi -planar sliding thin slab reformation, curved planar reformation, and surface rendering techniques. Using automated exposure control and adjustment of the mA and/or kV according to patient size, radiat ion dose was kept as low as reasonably achievable to obtain optimal diagnostic quality images. FINDINGS: The distal internal carotid arteries are widely patent bilaterally. The vertebral arteries are patent . The basilar is patent. The appearance of the anterior middle cerebral circulation is within normal limits. No aneurysm is id entified. The basilar is patent. The posterior cerebral circulation is widely patent. CONCLUSION: No large or central vessel occlusion identified. No aneurysm identified. Exam is negative for vasospa sm Chris Woodward MD on August 29, 2016 at 15:44 Board Certified Radiologist. This report was verified electronically.
--- NOTE | 2016-08-29 16:28 | RADRPT ---
EXAM DATE/TIME: 08/29/2016 14:46 [facility] COMPARISON: CT BRAIN W/O CONTRAST, August 28, 2016, 4:25. INDICATIONS : Evaluate for Hemorrhage/ edema. IV CONTRAST: 75 cc Omnipaque 350 (iohexol) IV RADIATION DOSE: 45.40 CTDIvol (mGy) ; Combined studies MEDICAL HISTORY : None SURGICAL HISTORY : None. ENCOUNTER: Initial ACUITY: 1 day PAIN SCALE: 0/10 LOCATION: Neck Elevated flow velocities and ICA/CCA ratios have been found to correlate with increased degrees of vessel stenosis, calculated as percentage of diameter relative to a normal segment of distal ICA/CCA. TECHNIQUE: Volumetric scanning was performed using a multirow detector CT scanner. The data was post processed with a variety of visualization algorithms including full-volume maximum intensity projection, multip lanar sliding thin-slab reformation, curved-planar reformation, and surface-rendering techniques. Us ing automated exposure control and adjustment of the mA and/or kV according to patient size, radiatio n dose was kept as low as reasonably achievable to obtain optimal diagnostic quality images. FINDINGS: Branching pattern of the great vessels is normal. ET tube and nasogastric tube do obscure the arch v essels. RIGHT CAROTID: There is no evidence for dissection or hemodynamically significant stenosis. LEFT CAROTID: There is no evidence for dissection or hemodynamically significant stenosis. Both vertebral arteries are patent although difficult to appreciate. CONCLUSION: I do not see evidence for carotid dissection. Bret Woodward MD FACR on August 29, 2016 at 16:19 Board Certified Radiologist. This report was verified electronically.
[2016-08-29 17:44] LABS: ALKALINE PHOSPHATASE 71 U/L (45-117); ALT (GPT) 24 U/L (10-53); ANION GAP 10 MEQ/L (5-15); AST (GOT) 25 U/L (15-37); BICARBONATE 20.2 MEQ/L (21.0-32.0); BLOOD UREA NITROGEN LESS THAN 1 MG/DL (7-18); CHLORIDE 129 MEQ/L (98-107); GLOMERULAR FILTRATION RATE 122 ML/MIN (>89); POTASSIUM 3.1 MEQ/L (3.5-5.1); TOTAL BILIRUBIN ADULT 1.1 MG/DL (0.2-1.0)
[2016-08-29 17:49] LABS: SODIUM (NA) 159 MEQ/L (136-145)
[2016-08-30] VITALS (16 sets, daily range): BP systolic 124–159; BP diastolic 56–68; PULSE 96–121; RESP 19–20; TEMP 97.5–100; O2SAT 97–100
[2016-08-30 00:46] LABS: POTASSIUM 4.3 MEQ/L (3.5-5.1)
[2016-08-30] MEDS: diphenhydrAMINE HCL 50 MG/ML VIAL IV PUSH SCH (01:38)
[2016-08-30] MEDS: ACETAMINOPHEN/HYDROcodone 325 MG/7.5 MG TAB PO PRN (01:39)
[2016-08-30] MEDS: MIDAZOLAM 100 MG/NS 100 ML DRIP Premix IV SCH ×2 (03:28→14:34)
[2016-08-30] MEDS: CHLORHEXIDINE GLUCONATE 2 % 1 PACK (2 CLOTHS) TOP SCH (03:28)
[2016-08-30] MEDS: PROPOFOL 1000 MG/100 ML INJ 100 ML IV SCH ×6 (03:29→22:43)
[2016-08-30] MEDS: NOREPINEPHRINE INJ 4 MG in SODIUM CHLOR 0.9% 250 ML INJ 246 ML IV SCH ×4 (04:48→21:02)
[2016-08-30 05:26] LABS: AUTOMATED NEUTROPHIL # 14.8 TH/MM3 (1.8-7.7); BASOPHIL % 0.2 % (0.0-2.0); EOSINOPHIL # 0.9 TH/MM3 (0-0.4); EOSINOPHIL % 4.8 % (0.0-4.0); HEMATOCRIT 28.3 % (35.0-46.0); LYMPH % 6.2 % (9.0-44.0); LYMPHOCYTE # 1.1 TH/MM3 (1.0-4.8); MEAN CELL VOLUME 86.3 FL (80.0-100.0); MEAN CORPUSCULAR HEMOGLOBIN 28.3 PG (27.0-34.0); MEAN CORPUSCULAR HGB CONC 32.8 % (32.0-36.0); MONO % 7.7 % (0.0-8.0); NEUT % 81.1 % (16.0-70.0); PLATELET COUNT 193 TH/MM3 (150-450); RED BLOOD COUNT 3.28 MIL/MM3 (4.00-5.30); RED CELL DISTRIBUTION WIDTH 14.3 % (11.6-17.2); WHITE BLOOD COUNT 18.2 TH/MM3 (4.0-11.0)
[2016-08-30 05:33] LABS: HEMO FLAGS AUTO DIFF
[2016-08-30 05:46] LABS: ALKALINE PHOSPHATASE 79 U/L (45-117); ALT (GPT) 31 U/L (10-53); ANION GAP 13 MEQ/L (5-15); AST (GOT) 53 U/L (15-37); BICARBONATE 18.3 MEQ/L (21.0-32.0); BLOOD UREA NITROGEN 4 MG/DL (7-18); CHLORIDE 129 MEQ/L (98-107); GLOMERULAR FILTRATION RATE 90 ML/MIN (>89); MAGNESIUM 1.9 MG/DL (1.5-2.5); POTASSIUM 3.7 MEQ/L (3.5-5.1)
[2016-08-30 05:50] LABS: SODIUM (NA) 160 MEQ/L (136-145)
--- NOTE | 2016-08-30 05:50 | RADRPT ---
EXAM DATE/TIME: 08/30/2016 04:42 [facility] COMPARISON: CHEST SINGLE AP, August 29, 2016, 3:29. INDICATIONS : Respiratory distress. MEDICAL HISTORY : None. SURGICAL HISTORY : None. ENCOUNTER: Subsequent ACUITY: 4 - 6 days PAIN SCORE: Non-responsive. LOCATION: Bilateral chest FINDINGS: Lines and tubes are present not significantly changed. Perivascular haziness is present and may repre sent pulmonary edema. Slight airspace process is difficult to exclude in both lung bases particularly on the left. CONCLUSION: There is mild pulmonary edema and air space process is difficult to exclude particularly in the left lung base. Kenyetta Stapleton MD on August 30, 2016 at 5:47 Board Certified Radiologist. This report was verified electronically.
[2016-08-30 06:20] LABS: BLOOD GAS BASE EXCESS -8.7 mmol/L (-2-2); BLOOD GAS CARBOXYHEMOGLOBIN 1.2 % (0-4); BLOOD GAS HCO3 15 mmol/L (22-26); BLOOD GAS METHEMOGLOBIN 0.7 % (0-2); BLOOD GAS O2 HGB SATURATION 96 % (90-100); BLOOD GAS OXYGEN CONTENT 12.9 Vol % (12.0-20.0); BLOOD GAS PCO2 26 mmHg (38-42); BLOOD GAS PO2 107 mmHg (61-120); BLOOD GAS TOTAL HGB 9.4 G/DL (12.0-16.0); TEMP CORR TO 98.6
[2016-08-30 06:21] LABS: CRITICAL VALUE YES; DRAW SITE LT BRACHIAL; FIO2 35 %; NUMBER OF ARTERIAL PUNCTURES 1; OXYGEN DEVICE VENTILATOR; STAT NO; ULNAR PULSE PRESENT; VENT SETTINGS PRVC/AC
[2016-08-30] MEDS ORDERED: SODIUM BICARBONATE 8.4% INJ 50 ML ONE ×2 (06:33→13:23)
[2016-08-30] MEDS ORDERED: SODIUM BICARBONATE 8.4% SOLN 50 MEQ/50 ML VIAL IV SCH (06:45)
[2016-08-30 07:09] LABS: BANDS 26 % (0-6); EOSINOPHILS 3 % (0-4); METAMYELOCYTES 2 % (0-1); NEUTROPHIL # MANUAL DIFF 14.6 TH/MM3 (1.8-7.7); POLYS (SEG NEUTROPHILS) 52 % (16-70); WBC DIFF SAMPLE 100
[2016-08-30 07:11] LABS: PLATELET MORPHOLOGY NORMAL (NORMAL); SCAN/DIFF FINAL DIFF MANUAL
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
[2016-08-30] MEDS: CHLORHEXIDINE 0.12% (ORAL KIT) 15 ML CUP MT SCH ×2 (07:45→20:54)
[2016-08-30] MEDS: fentaNYL DRIP 250 ML IV SCH ×2 (07:45→16:53)
[2016-08-30] MEDS ORDERED: VANCOMYCIN INJ 1,000 MG in SODIUM CHLOR 0.9% 250 ML INJ 250 ML IV ONE (08:00)
[2016-08-30] MEDS: DOCUSATE SODIUM 100 MG CAP PO SCH ×2 (09:00→20:55)
[2016-08-30] MEDS: BACITRACIN TOP OINT 15 GM TUBE TOP SCH ×2 (09:00→20:56)
[2016-08-30] MEDS: LACTULOSE SYRUP 20 GM/30 ML CUP PO SCH (09:00)
[2016-08-30] MEDS: RANITIDINE HCL SYRUP 150 MG/10 ML UDC OG-TUBE SCH ×2 (09:00→20:55)
[2016-08-30] MEDS: levETIRAcetam INJ 500 MG in SODIUM CHLORIDE 0.9% INJ 100 ML IV SCH ×2 (09:00→20:55)
[2016-08-30] MEDS: metroNIDAZOLE 500 MG INJ 100 ML IV SCH ×2 (09:00→16:52)
[2016-08-30] MEDS: SODIUM BICARBONATE 8.4% INJ 50 MEQ in SODIUM CHLOR 0.45% 1000 ML INJ 1,000 ML IV SCH ×3 (09:00→23:01)
[2016-08-30] MEDS: AZTREONAM INJ 2,000 MG in SODIUM CHLORIDE 0.9% INJ 100 ML IV SCH ×2 (09:01→15:56)
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
[2016-08-30] MEDS: CISATRACURIUM INJ 100 MG in SODIUM CHLOR 0.9% 250 ML INJ 240 ML IV SCH ×3 (11:15→22:15)
--- NOTE | 2016-08-30 11:44 | PD.PROCEDR ---
Procedure Note Procedure ARTERIAL LINE PROCEDURE: REASON FOR PROCEDURE: Invasive hemodynamic monitoring PROCEDURE PERFORMED Right femoral arterial line, ultrasound-guided (Unable to cannulate L radial artery due to small caliber artery and hyperosmolar blood. Unable to use left axillary site due to fungal infection of skin) CONSENT Informed consent for procedure was obtained and time out performed. The risks and benefits of the procedure were discussed to include but limited to bleeding , clot formation, infection, and even . ANESTHESIA Local injection of 1% Lidocaine DESCRIPTION OF THE PROCEDURE The right femoral area was exposed and cleansed with ChloraPrep, times two. Sterile drape was used to cover the patient, with the site exposed, under sterile conditions including cap, face mask, sterile gown, and sterile gloves. On third attempt, the introducer needle was inserted with negative pressure in syringe and arterial flash was obtained. The guide wire was then advanced without any restriction and the needle was removed. Using Seldinger technique the 12 CM single lumen catheter was advanced over the guide wire to a depth of 11 centimeters. The guide wire was removed. Good arterial wave form noted The arterial line was secured to the skin with two interrupted 2.0 silk sutures. The area was bandaged with sterile see-through dressing. COMPLICATIONS: No apparent complications, blood loss was approximately 5 ml Jennifer Jimenez MD Aug 30, 2016 11:44
[2016-08-30 12:02] LABS: BLOOD GAS BASE EXCESS -8.5 mmol/L (-2-2); BLOOD GAS CARBOXYHEMOGLOBIN 0.9 % (0-4); BLOOD GAS HCO3 16 mmol/L (22-26); BLOOD GAS METHEMOGLOBIN 0.9 % (0-2); BLOOD GAS O2 HGB SATURATION 97 % (90-100); BLOOD GAS OXYGEN CONTENT 15.1 Vol % (12.0-20.0); BLOOD GAS PCO2 26 mmHg (38-42); BLOOD GAS PO2 143 mmHg (61-120); BLOOD GAS TOTAL HGB 10.8 G/DL (12.0-16.0); TEMP CORR TO 98.6
[2016-08-30 12:05] LABS: CRITICAL VALUE YES; OXYGEN DEVICE VENTILATOR
[2016-08-30 12:06] LABS: DRAW SITE ART LINE; FIO2 35 %; STAT NO
[2016-08-30] MEDS ORDERED: SODIUM BICARBONATE 8.4% INJ 50 MEQ/50 ML SYR ONE (13:25)
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
[2016-08-30] MEDS: SODIUM CHLORIDE 23.4% INJ 188 MEQ in SODIUM CHLOR 0.9% 1000 ML INJ 1,000 ML IV SCH (15:56)
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
[2016-08-30] MEDS ORDERED: SODIUM BICARBONATE 8.4% SOLN 50 MEQ/50 ML VIAL IV ONE (17:15)
[2016-08-30] MEDS: NYSTATIN 100,000 U/GM PWD 15 GM BTL TOPICAL SCH (20:56)
[2016-08-31] VITALS (19 sets, daily range): BP systolic 117–140; BP diastolic 58–68; PULSE 100–127; RESP 20; TEMP 96.5–100.7; O2SAT 93–100
[2016-08-31] MEDS: AZTREONAM INJ 2,000 MG in SODIUM CHLORIDE 0.9% INJ 100 ML IV SCH ×4 (00:24→23:43)
[2016-08-31] MEDS: NOREPINEPHRINE INJ 4 MG in SODIUM CHLOR 0.9% 250 ML INJ 246 ML IV SCH ×4 (00:40→16:29)
[2016-08-31] MEDS: metroNIDAZOLE 500 MG INJ 100 ML IV SCH ×3 (01:01→16:30)
[2016-08-31] MEDS: fentaNYL DRIP 250 ML IV SCH ×3 (01:11→20:02)
[2016-08-31] MEDS: PROPOFOL 1000 MG/100 ML INJ 100 ML IV SCH ×4 (03:18→18:37)
[2016-08-31] MEDS: CHLORHEXIDINE GLUCONATE 2 % 1 PACK (2 CLOTHS) TOP SCH (04:00)
[2016-08-31] MEDS ORDERED: ACETAMINOPHEN 1000 MG/100 ML VIAL IV SCH ×2 (04:00→06:00)
[2016-08-31] MEDS: CISATRACURIUM INJ 100 MG in SODIUM CHLOR 0.9% 250 ML INJ 240 ML IV SCH ×2 (04:14→09:18)
[2016-08-31 04:25] LABS: AUTOMATED NEUTROPHIL # 19.7 TH/MM3 (1.8-7.7); BASOPHIL # 0.1 TH/MM3 (0-0.2); BASOPHIL % 0.2 % (0.0-2.0); EOSINOPHIL % 4.2 % (0.0-4.0); HEMATOCRIT 26.5 % (35.0-46.0); LYMPH % 5.9 % (9.0-44.0); LYMPHOCYTE # 1.4 TH/MM3 (1.0-4.8); MEAN CELL VOLUME 85.6 FL (80.0-100.0); MEAN CORPUSCULAR HEMOGLOBIN 28.1 PG (27.0-34.0); MEAN CORPUSCULAR HGB CONC 32.9 % (32.0-36.0); MONO % 5.2 % (0.0-8.0); NEUT % 84.5 % (16.0-70.0); PLATELET COUNT 198 TH/MM3 (150-450); RED CELL DISTRIBUTION WIDTH 14.4 % (11.6-17.2); WHITE BLOOD COUNT 23.4 TH/MM3 (4.0-11.0)
[2016-08-31 04:31] LABS: HEMO FLAGS AUTO DIFF
[2016-08-31 04:45] LABS: ANION GAP 14 MEQ/L (5-15); AST (GOT) 38 U/L (15-37); BICARBONATE 16.7 MEQ/L (21.0-32.0); BLOOD UREA NITROGEN 7 MG/DL (7-18); CHLORIDE 126 MEQ/L (98-107); GLOMERULAR FILTRATION RATE 104 ML/MIN (>89); MAGNESIUM 1.8 MG/DL (1.5-2.5)
[2016-08-31 04:48] LABS: ALKALINE PHOSPHATASE 101 U/L (45-117); ALT (GPT) 24 U/L (10-53); POTASSIUM 2.7 MEQ/L (3.5-5.1); SODIUM (NA) 157 MEQ/L (136-145)
[2016-08-31] MEDS: POTASSIUM CHLOR 40 MEQ PREMIX 100 ML IV PRN ×2 (05:00→17:02)
[2016-08-31 05:24] LABS: BLOOD GAS BASE EXCESS -8.2 mmol/L (-2-2); BLOOD GAS HCO3 16 mmol/L (22-26); BLOOD GAS O2 HGB SATURATION 93 % (90-100); BLOOD GAS OXYGEN CONTENT 16.6 Vol % (12.0-20.0); BLOOD GAS PCO2 29 mmHg (38-42); BLOOD GAS PO2 83 mmHg (61-120); BLOOD GAS TOTAL HGB 12.6 G/DL (12.0-16.0); TEMP CORR TO 98.6
--- NOTE | 2016-08-31 05:24 | RADRPT ---
EXAM DATE/TIME: 08/31/2016 04:56 [facility] COMPARISON: CHEST SINGLE AP, August 30, 2016, 4:42. INDICATIONS : Shortness of breath. MEDICAL HISTORY : Non-responsive. SURGICAL HISTORY : Non-responsive. ENCOUNTER: Subsequent ACUITY: 4 - 6 days PAIN SCORE: Non-responsive. LOCATION: Bilateral chest FINDINGS: Lines and tubes are present not significantly changed. Right basilar opacity is present may be due to a combination of consolidation and or pleural effusion not present previously. Left basilar opacity is present may be due to a combination of consolidation and or pleural effusion worse since the prio r exam. The rest of the examination has not significantly changed. CONCLUSION: Interval development of right lung base opacity may be combination of pleural effusion and or consoli dation, however collapsed right middle lobe and lower lobe should also be entertained. There is also worsening left lung base opacity. Kenyetta Stapleton MD on August 31, 2016 at 5:20 Board Certified Radiologist. This report was verified electronically.
[2016-08-31 05:26] LABS: CRITICAL VALUE YES; OXYGEN DEVICE VENTILATOR
[2016-08-31 05:27] LABS: DRAW SITE ART LINE; FIO2 35 %; STAT NO; VENT SETTINGS PRVC/20/450/PEEP5
[2016-08-31] MEDS ORDERED: ATROPINE SULFATE 1 MG/10 ML SYRINGE ONE (06:03)
[2016-08-31] MEDS ORDERED: LIDOCAINE HCL 2% 100 MG/5 ML SYRINGE ONE (06:03)
[2016-08-31] MEDS ORDERED: EPINEPHrine HCL (1:10,000) 1 MG/10 ML SYRINGE ONE (06:03)
[2016-08-31 06:05] LABS: BANDS 32 % (0-6); EOSINOPHILS 3 % (0-4); METAMYELOCYTES 1 % (0-1); PLATELET ESTIMATE SMEAR NORMAL (NORMAL); PLATELET MORPHOLOGY NORMAL (NORMAL); POLYS (SEG NEUTROPHILS) 60 % (16-70); PROMYELOCYTES 1 % (0-0); SCAN/DIFF FINAL DIFF MANUAL; WBC DIFF SAMPLE 100
[2016-08-31] MEDS: SODIUM BICARBONATE 8.4% INJ 50 MEQ in SODIUM CHLOR 0.45% 1000 ML INJ 1,000 ML IV SCH (06:09)
[2016-08-31] MEDS: MIDAZOLAM 100 MG/NS 100 ML DRIP Premix IV SCH ×2 (06:10→16:31)
[2016-08-31] MEDS ORDERED: IOHEXOL 350 MG/ML 10 ML VIAL (for RAD DIAG) IV ONE (07:22)
--- NOTE | 2016-08-31 07:29 | RADRPT ---
EXAM DATE/TIME: 08/31/2016 07:10 [facility] COMPARISON: CT BRAIN W/O CONTRAST, August 29, 2016, 14:46. INDICATIONS : Increased intracranial pressures RADIATION DOSE: 63.84 CTDIvol (mGy) MEDICAL HISTORY : None SURGICAL HISTORY : None. ENCOUNTER: Subsequent ACUITY: 1 week PAIN SCALE: Non-responsive LOCATION: cranial TECHNIQUE: Multiple contiguous axial images were obtained of the head. Using automated exposure control and adj ustment of the mA and/or kV according to patient size, radiation dose was kept as low as reasonably a chievable to obtain optimal diagnostic quality images. FINDINGS: CEREBRUM: Ventricles are normal in size. A right frontal ICP monitor remains present. There are stable bifronta l hemorrhagic contusions, left greater than right. Hemorrhagic contusion is also present at the right parietal high convexity. There are subarachnoid blood products in the right frontal high convexity a nd possible blood products in the inner hemispheric fissure at the high convexity. No midline shift o r herniation is present. No mass or acute infarct is identified. POSTERIOR FOSSA: No acute finding is identified. EXTRACRANIAL: Visualized sinuses are clear. SKULL: The calvaria is intact. No evidence of skull fracture. CONCLUSION: Stable noncontrast head CT with bifrontal and right parietal hemorrhagic contusions. Subtle subarachn oid blood products are present at the right high convexity and possibly in the interhemispheric fissu reEaston Lou MD on August 31, 2016 at 7:24 Board Certified Radiologist. This report was verified electronically.
[2016-08-31] MEDS ORDERED: Vancomycin Consult Pharmacy 1 EA OTHER SCH (07:30)
[2016-08-31] MEDS ORDERED: VANCOMYCIN INJ 1,250 MG in SODIUM CHLOR 0.9% 250 ML INJ 250 ML IV STA (07:31)
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
[2016-08-31] MEDS ORDERED: MAGNESIUM CITRATE SOLN 300 ML BTL PO ONE (08:00)
[2016-08-31] MEDS ORDERED: MAGNESIUM SULFATE 1 GM PREMIX 100 ML IV ONE (08:00)
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
[2016-08-31] MEDS ORDERED: SODIUM BICARBONATE 8.4% INJ 75 MEQ in SODIUM CHLOR 0.45% 1000 ML INJ 1,000 ML IV SCH (09:00)
[2016-08-31] MEDS ORDERED: SODIUM CHLOR 0.9% 1000 ML INJ 2,000 ML IV ONE (09:40)
[2016-08-31] MEDS ORDERED: ALBUMIN HUMAN 5% 25 GM/500 ML BOTTLE IV ONE (09:45)
[2016-08-31] MEDS: LEVOFLOXACIN 750 MG PREMIX INJ 150 ML IV SCH (09:52)
[2016-08-31] MEDS: levETIRAcetam INJ 500 MG in SODIUM CHLORIDE 0.9% INJ 100 ML IV SCH ×2 (09:52→23:41)
[2016-08-31] MEDS: NYSTATIN 100,000 U/GM PWD 15 GM BTL TOPICAL SCH ×2 (09:53→23:28)
[2016-08-31] MEDS: BACITRACIN TOP OINT 15 GM TUBE TOP SCH ×2 (09:53→23:28)
[2016-08-31] MEDS: LACTULOSE SYRUP 20 GM/30 ML CUP PO SCH ×3 (09:53→21:00)
[2016-08-31] MEDS: DOCUSATE SODIUM 100 MG CAP PO SCH ×2 (09:53→21:00)
[2016-08-31] MEDS: POTASSIUM CHLORIDE 25 MEQ EFFERVESCENT TAB PO SCH ×2 (09:53→23:42)
[2016-08-31] MEDS: RANITIDINE HCL SYRUP 150 MG/10 ML UDC OG-TUBE SCH ×2 (09:53→23:42)
[2016-08-31] MEDS: CHLORHEXIDINE 0.12% (ORAL KIT) 15 ML CUP MT SCH ×2 (09:54→20:03)
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
[2016-08-31 13:58] LABS: AUTOMATED NEUTROPHIL # 19.6 TH/MM3 (1.8-7.7); BASOPHIL % 0.2 % (0.0-2.0); EOSINOPHIL # 0.9 TH/MM3 (0-0.4); EOSINOPHIL % 3.9 % (0.0-4.0); HEMATOCRIT 24.6 % (35.0-46.0); LYMPH % 8.6 % (9.0-44.0); MEAN CELL VOLUME 87.2 FL (80.0-100.0); MEAN CORPUSCULAR HEMOGLOBIN 27.8 PG (27.0-34.0); MEAN CORPUSCULAR HGB CONC 31.9 % (32.0-36.0); MONO % 4.6 % (0.0-8.0); NEUT % 82.7 % (16.0-70.0); PLATELET COUNT 165 TH/MM3 (150-450); RED BLOOD COUNT 2.82 MIL/MM3 (4.00-5.30); RED CELL DISTRIBUTION WIDTH 14.6 % (11.6-17.2); WHITE BLOOD COUNT 23.7 TH/MM3 (4.0-11.0)
[2016-08-31 14:00] LABS: HEMO FLAGS AUTO DIFF
[2016-08-31 14:39] LABS: BICARBONATE 16.3 MEQ/L (21.0-32.0); CALCIUM-PROTEIN CORRECTED 8.8 MG/DL (8.5-10.1); MAGNESIUM 2.2 MG/DL (1.5-2.5); POTASSIUM 3.4 MEQ/L (3.5-5.1)
[2016-08-31 14:56] LABS: BANDS 20 % (0-6); EOSINOPHILS 4 % (0-4); METAMYELOCYTES 1 % (0-1); NEUTROPHIL # MANUAL DIFF 21.6 TH/MM3 (1.8-7.7); PLATELET ESTIMATE SMEAR NORMAL (NORMAL); PLATELET MORPHOLOGY NORMAL (NORMAL); POLYS (SEG NEUTROPHILS) 69 % (16-70); PROMYELOCYTES 1 % (0-0); SCAN/DIFF FINAL DIFF MANUAL; WBC DIFF SAMPLE 100
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
[2016-08-31] MEDS: SODIUM CHLORIDE 23.4% INJ 188 MEQ in SODIUM CHLOR 0.9% 1000 ML INJ 1,000 ML IV SCH (16:00)
[2016-08-31] MEDS: SODIUM BICARBONATE 8.4% INJ 50 MEQ in SODIUM CHLOR 0.9% 1000 ML INJ 1,000 ML IV SCH ×2 (16:29→23:27)
[2016-08-31] MEDS: VANCOMYCIN INJ 1,250 MG in SODIUM CHLOR 0.9% 250 ML INJ 250 ML IV SCH (16:31)
[2016-08-31] MEDS: MAGNESIUM HYDROXIDE SUSP 30 ML CUP PO SCH (21:00)
--- NOTE | 2016-08-31 22:31 | RADRPT ---
EXAM DATE/TIME: 08/31/2016 22:06 [facility] COMPARISON: CT BRAIN W/O CONTRAST, August 31, 2016, 7:10. INDICATIONS : Neuro status change. RADIATION DOSE: 56.20 CTDIvol (mGy) MEDICAL HISTORY : None SURGICAL HISTORY : None. ENCOUNTER: Subsequent ACUITY: 1 day PAIN SCALE: Non-responsive LOCATION: cranial TECHNIQUE: Multiple contiguous axial images were obtained of the head. Using automated exposure control and adj ustment of the mA and/or kV according to patient size, radiation dose was kept as low as reasonably a chievable to obtain optimal diagnostic quality images. FINDINGS: Small scattered parenchymal hemorrhages of both cerebral hemispheres are again noted, primarily subco rtical in location and not significantly changed in size. Pressure monitoring bolt has been. A ventri culostomy catheter has been placed via right frontal approach, tip near the foramen of Lomas. Normal ventricle size and unchanged. No new bleed. No mass, mass effect or midline shift. No evidence of an acute ischemic event. CONCLUSION: 1. Scattered small subacute parenchymal hemorrhages of posterolateral hemispheres unchanged. 2. Pressure monitoring bolt removed. A right ventriculostomy catheter has been placed with out eviden ce of an acute complication. No ventriculomegaly. Tony Baker MD on August 31, 2016 at 22:25 Board Certified Radiologist. This report was verified electronically.
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
[2016-09-01] VITALS (23 sets, daily range): BP systolic 112–176; BP diastolic 51–97; PULSE 97–128; RESP 20–30; TEMP 95–97.7; O2SAT 91–100
[2016-09-01] MEDS: MIDAZOLAM 100 MG/NS 100 ML DRIP Premix IV SCH (01:42)
[2016-09-01] MEDS: PROPOFOL 1000 MG/100 ML INJ 100 ML IV SCH ×5 (01:42→22:41)
[2016-09-01] MEDS: metroNIDAZOLE 500 MG INJ 100 ML IV SCH ×3 (01:43→15:56)
[2016-09-01] MEDS: VANCOMYCIN INJ 1,250 MG in SODIUM CHLOR 0.9% 250 ML INJ 250 ML IV SCH ×3 (01:44→17:44)
[2016-09-01] MEDS: LACTULOSE SYRUP 20 GM/30 ML CUP PO SCH ×4 (03:00→22:42)
[2016-09-01] MEDS: CHLORHEXIDINE GLUCONATE 2 % 1 PACK (2 CLOTHS) TOP SCH (04:00)
[2016-09-01] MEDS: NOREPINEPHRINE INJ 4 MG in SODIUM CHLOR 0.9% 250 ML INJ 246 ML IV SCH ×2 (04:23→06:45)
[2016-09-01 05:05] LABS: BLOOD GAS BASE EXCESS -9.7 mmol/L (-2-2); BLOOD GAS CARBOXYHEMOGLOBIN 0.9 % (0-4); BLOOD GAS HCO3 17 mmol/L (22-26); BLOOD GAS O2 HGB SATURATION 91 % (90-100); BLOOD GAS PCO2 41 mmHg (38-42); BLOOD GAS PO2 80 mmHg (61-120); BLOOD GAS TOTAL HGB 13.2 G/DL (12.0-16.0); TEMP CORR TO 98.6
[2016-09-01 05:06] LABS: CRITICAL VALUE YES; OXYGEN DEVICE VENTILATOR
[2016-09-01 05:07] LABS: DRAW SITE ART LINE; FIO2 80 %; STAT NO; VENT SETTINGS PRVC/AC
[2016-09-01 05:15] LABS: AUTOMATED NEUTROPHIL # 22.7 TH/MM3 (1.8-7.7); BASOPHIL # 0.2 TH/MM3 (0-0.2); BASOPHIL % 0.5 % (0.0-2.0); EOSINOPHIL # 1.3 TH/MM3 (0-0.4); EOSINOPHIL % 4.7 % (0.0-4.0); LYMPH % 9.3 % (9.0-44.0); LYMPHOCYTE # 2.6 TH/MM3 (1.0-4.8); MEAN CELL VOLUME 87.7 FL (80.0-100.0); MEAN CORPUSCULAR HEMOGLOBIN 28.3 PG (27.0-34.0); MEAN CORPUSCULAR HGB CONC 32.3 % (32.0-36.0); MONO % 3.5 % (0.0-8.0); PLATELET COUNT 168 TH/MM3 (150-450); RED BLOOD COUNT 2.85 MIL/MM3 (4.00-5.30); RED CELL DISTRIBUTION WIDTH 14.8 % (11.6-17.2); WHITE BLOOD COUNT 27.6 TH/MM3 (4.0-11.0)
[2016-09-01 05:19] LABS: HEMO FLAGS AUTO DIFF
[2016-09-01 05:50] LABS: ALKALINE PHOSPHATASE 131 U/L (45-117); ALT (GPT) 23 U/L (10-53); ANION GAP 11 MEQ/L (5-15); AST (GOT) 35 U/L (15-37); BICARBONATE 19.4 MEQ/L (21.0-32.0); BLOOD UREA NITROGEN 7 MG/DL (7-18); CHLORIDE 137 MEQ/L (98-107); GLOMERULAR FILTRATION RATE 111 ML/MIN (>89); MAGNESIUM 2.3 MG/DL (1.5-2.5); TOTAL BILIRUBIN ADULT 0.9 MG/DL (0.2-1.0)
[2016-09-01 05:53] LABS: POTASSIUM 2.2 MEQ/L (3.5-5.1); SODIUM (NA) 167 MEQ/L (136-145)
[2016-09-01] MEDS: SODIUM BICARBONATE 8.4% INJ 50 MEQ in SODIUM CHLOR 0.9% 1000 ML INJ 1,000 ML IV SCH ×2 (05:56→11:50)
[2016-09-01] MEDS ORDERED: MAGNESIUM SULFATE INJ 4 GM in SODIUM CHLORIDE 0.9% INJ 92 ML IV PRN (06:00)
[2016-09-01] MEDS ORDERED: MAGNESIUM SULFATE INJ 2 GM in SODIUM CHLORIDE 0.9% INJ 96 ML IV PRN (06:00)
[2016-09-01] MEDS ORDERED: SODIUM PHOSPHATE INJ 30 MMOL in SODIUM CHLOR 0.9% 250 ML INJ 240 ML IV PRN (06:00)
[2016-09-01] MEDS ORDERED: POTASSIUM CHLOR 40 MEQ PREMIX 100 ML IV PRN (06:00)
[2016-09-01] MEDS ORDERED: POTASSIUM CHLOR 20 MEQ PREMIX 100 ML IV PRN ×2 (06:00)
[2016-09-01] MEDS ORDERED: POTASSIUM PHOSPHATE MONOBASIC 500 MG TAB PO PRN (06:00)
[2016-09-01] MEDS ORDERED: POTASSIUM CHLORIDE 25 MEQ EFFERVESCENT TAB PO PRN (06:00)
[2016-09-01] MEDS ORDERED: POTASSIUM PHOSPHATE MONOBASIC 500 MG TAB PO/TUBE PRN (06:00)
[2016-09-01] MEDS ORDERED: MAGNESIUM OXIDE 400 MG TAB PO PRN (06:00)
[2016-09-01] MEDS ORDERED: POTASSIUM PHOSPHATE INJ 30 MMOL in SODIUM CHLOR 0.9% 250 ML INJ 250 ML IV PRN (06:00)
[2016-09-01] MEDS: POTASSIUM CHLOR 40 MEQ PREMIX 100 ML IV PRN (06:16)
--- NOTE | 2016-09-01 06:20 | RADRPT ---
EXAM DATE/TIME: 09/01/2016 04:37 [facility] COMPARISON: CHEST SINGLE AP, August 31, 2016, 4:56. INDICATIONS : Shortness of breath MEDICAL HISTORY : Unobtainable SURGICAL HISTORY : Unobtainable ENCOUNTER: Initial ACUITY: 1 week PAIN SCORE: Non-responsive. LOCATION: Bilateral chest FINDINGS: Fairly extensive bilateral air space process has developed probably pulmonary edema. Lines and tubes are present not significantly changed. Bilateral pleural effusions are also suspected. The rest of th e examination has not significantly changed. CONCLUSION: Fairly extensive interval development of bilateral air space process probably pulmonary edema. Kenyetta Stapleton MD on September 01, 2016 at 6:18 Board Certified Radiologist. This report was verified electronically.
[2016-09-01] MEDS ORDERED: SODIUM BICARBONATE 8.4% SOLN 50 MEQ/50 ML VIAL IV PUSH ONE (06:30)
[2016-09-01] MEDS: fentaNYL DRIP 250 ML IV SCH (06:44)
[2016-09-01 07:01] LABS: BANDS 41 % (0-6); CORRECTED NUCLEATED RBC 1 /100 WBC (0-0); EOSINOPHILS 3 % (0-4); MYELOCYTES 2 % (0-0); NEUTROPHIL # MANUAL DIFF 25.9 TH/MM3 (1.8-7.7); PLATELET ESTIMATE SMEAR NORMAL (NORMAL); PLATELET MORPHOLOGY NORMAL (NORMAL); POLYS (SEG NEUTROPHILS) 51 % (16-70); SCAN/DIFF FINAL DIFF MANUAL; WBC DIFF SAMPLE 100
[2016-09-01 07:02] LABS: DOHLE BODIES PRESENT (NONE SEEN); TOXIC GRANULATION 1+ (NORMAL)
[2016-09-01] MEDS ORDERED: BUMETANIDE INJ 1 MG/4 ML VIAL IV PUSH STA (07:06)
[2016-09-01] MEDS ORDERED: ROCURONIUM INJ 50 MG/5 ML VIAL IV STA (07:06)
[2016-09-01] MEDS ORDERED: ROCURONIUM INJ 50 MG/5 ML VIAL ONE (07:06)
[2016-09-01] MEDS ORDERED: BUMETANIDE INJ 1 MG/4 ML VIAL ONE (07:12)
[2016-09-01] MEDS ORDERED: TERBUTALINE INJ 1 MG/ML AMP SQ PRN (07:30)
[2016-09-01] MEDS ORDERED: ALBUMIN HUMAN 25% 25 GM/100 ML BAGP IV ONE (08:00)
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
[2016-09-01 08:36] LABS: BLOOD GAS BASE EXCESS -4.7 mmol/L (-2-2); BLOOD GAS CARBOXYHEMOGLOBIN 1.2 % (0-4); BLOOD GAS HCO3 20 mmol/L (22-26); BLOOD GAS METHEMOGLOBIN 1.3 % (0-2); BLOOD GAS O2 HGB SATURATION 93 % (90-100); BLOOD GAS OXYGEN CONTENT 14.5 Vol % (12.0-20.0); BLOOD GAS PCO2 36 mmHg (38-42); BLOOD GAS PO2 80 mmHg (61-120); TEMP CORR TO 98.6
[2016-09-01 08:37] LABS: CRITICAL VALUE NO; OXYGEN DEVICE VENTILATOR
[2016-09-01 08:38] LABS: DRAW SITE ART LINE; FIO2 100 %; STAT YES
[2016-09-01] MEDS ORDERED: PHARMACY ORDERED LAB ONE ×2 (08:45→10:45)
[2016-09-01] MEDS: RESP: ALBUTEROL 2.5 MG/IPRATROPIUM 0.5 MG NEB (SCH) NEB ×5 (08:47→22:46)
[2016-09-01] MEDS: POTASSIUM CHLORIDE INJ 40 MEQ in SODIUM CHLOR 0.45% 1000 ML INJ 1,000 ML IV SCH ×3 (08:49→23:00)
[2016-09-01] MEDS: POTASSIUM CHLORIDE 25 MEQ EFFERVESCENT TAB PO SCH ×4 (09:00→22:42)
[2016-09-01] MEDS: DOCUSATE SODIUM 100 MG CAP PO SCH ×2 (09:00→20:26)
[2016-09-01] MEDS: BUMETANIDE INJ 1 MG/4 ML VIAL IV PUSH SCH ×2 (09:00→15:56)
[2016-09-01] MEDS ORDERED: NOREPINEPHRINE INJ 16 MG in SODIUM CHLOR 0.9% 250 ML INJ 234 ML IV SCH (09:00)
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
[2016-09-01] MEDS: CHLORHEXIDINE 0.12% (ORAL KIT) 15 ML CUP MT SCH ×2 (10:11→20:00)
[2016-09-01] MEDS: NYSTATIN 100,000 U/GM PWD 15 GM BTL TOPICAL SCH ×2 (10:13→22:42)
[2016-09-01] MEDS: BACITRACIN TOP OINT 15 GM TUBE TOP SCH ×2 (10:13→22:42)
[2016-09-01] MEDS: PANTOPRAZOLE SODIUM 40 MG VIAL IV PUSH SCH ×2 (10:26→20:26)
[2016-09-01] MEDS: levETIRAcetam INJ 500 MG in SODIUM CHLORIDE 0.9% INJ 100 ML IV SCH ×2 (10:27→20:26)
[2016-09-01] MEDS: AZTREONAM INJ 2,000 MG in SODIUM CHLORIDE 0.9% INJ 100 ML IV SCH ×2 (10:28→15:57)
[2016-09-01] MEDS: LEVOFLOXACIN 750 MG PREMIX INJ 150 ML IV SCH (10:29)
[2016-09-01] MEDS ORDERED: DESMOPRESSIN ACETATE 4 MCG/ML VIAL IV PUSH ONE (10:30)
[2016-09-01] MEDS ORDERED: ROCURONIUM INJ 50 MG/5 ML VIAL IV ONE (12:00)
[2016-09-01 12:50] LABS: BICARBONATE 17.9 MEQ/L (21.0-32.0); CALCIUM-PROTEIN CORRECTED 8.3 MG/DL (8.5-10.1); POTASSIUM 3.3 MEQ/L (3.5-5.1)
[2016-09-01] MEDS: SODIUM CHLORIDE 23.4% INJ 188 MEQ in SODIUM CHLOR 0.9% 1000 ML INJ 1,000 ML IV SCH (13:06)
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
[2016-09-01 16:14] LABS: BICARBONATE 20.7 MEQ/L (21.0-32.0); TOTAL BILIRUBIN ADULT 1.3 MG/DL (0.2-1.0)
--- NOTE | 2016-09-01 16:35 | RADRPT ---
EXAM DATE/TIME: 09/01/2016 12:50 [facility] COMPARISON: No previous studies available for comparison. INDICATIONS : Subarachnoid hemorrhage. MEDICAL HISTORY : Unable to obtain. SURGICAL HISTORY : Unable to obtain. ENCOUNTER: Initial ACUITY: 1 day PAIN SCORE: Nonresponsive. LOCATION: Bilateral cranial Current Exam: Sep 01, 2016 [place] Ratio: Right: 2.2 Left: 3.2 [place] Ratio: Right: 1.1 Left: 1.7 FINDINGS: Examination performed at bedside. Real-time ultrasound with the assistance of color and spectral Dop pler was utilized to evaluate the intracerebral circulation. Time-averaged maximal velocities are ca lculated in cm/s. Peak systolic velocities and ratios are within normal limits on the right. There is minimally increas ed velocities with slightly increased [place] ratio of 3.2 on the left consistent with very mild va sospasm. CONCLUSION: 1. Findings consistent with very mild left sided vasospasm. Jason Cobian MD on September 01, 2016 at 16:06 Board Certified Radiologist. This report was verified electronically.
[2016-09-01 16:39] LABS: CALCIUM-PROTEIN CORRECTED 8.6 MG/DL (8.5-10.1); POTASSIUM 4.2 MEQ/L (3.5-5.1)
--- NOTE | 2016-09-01 17:43 | ECHRPT ---
Indication: Shortness of breath CONCLUSIONS BP: 112 / 55 HR: Rhythm: Other MEASUREMENTS (Male / Female) Normal Values Technical Quality:Fair 2D ECHO LV Diastolic Diameter PLAX 4.0 cm 4.2 - 5.9 / 3.9 - 5.3 cm LV Systolic Diameter PLAX 2.9 cm IVS Diastolic Thickness 0.9 cm 0.6 - 1.0 / 0.6 - 0.9 cm LVPW Diastolic Thickness 0.9 cm 0.6 - 1.0 / 0.6 - 0.9 cm LV Relative Wall Thickness 0.4 LVOT Diameter 1.8 cm M-MODE Aortic Root Diameter MM 2.4 cm LA Systolic Diameter MM 3.0 cm LA Ao Ratio MM 1.3 DOPPLER AV Peak Velocity 170.0 cm/s AV Peak Gradient 11.6 mmHg LVOT Peak Velocity 124.0 cm/s LVOT Peak Gradient 6.2 mmHg AV Area Cont Eq pk 1.9 cm MR Peak Velocity 468.0 cm/s MR Peak Gradient 87.6 mmHg TR Peak Velocity 338.0 cm/s TR Peak Gradient 46.0 mmHg PV Peak Velocity 117.0 cm/s PV Peak Gradient 5.5 mmHg FINDINGS LEFT VENTRICLE The left ventricular systolic function is normal with an estimated ejection fraction in the range of 60-65%. Wall thickness is normal. Normal left ventricular size. RIGHT VENTRICLE Normal right ventricular size and systolic function. LEFT ATRIUM The left atrial size is normal. RIGHT ATRIUM The right atrial size is normal. ATRIAL SEPTUM Normal atrial septal thickness without atrial level shunting by limited color doppler interrogation. AORTA The aortic root and proximal ascending aorta are normal in size on limited imaging. MITRAL VALVE Structurally normal mitral valve. [id number] mitral valve regurgitation. AORTIC VALVE Trileaflet aortic valve. No aortic valve stenosis or regurgitation. TRICUSPID VALVE There is estimated moderate pulmonary hypertension present (range 50-60 mmHg). Structurally normal tricuspid valve. There is mild to moderate tricuspid valve regurgitation. The estimated pulmonary arterial pressure is 56 mmHg. PULMONARY VALVE The pulmonary valve is not well visualized. VESSELS The inferior vena cava is normal in size. PERICARDIUM No pericardial effusion. Rajat Cordova MD (Electronically Signed) Final Date:01 September 2016 17:42
[2016-09-01 18:21] LABS: BLOOD GAS BASE EXCESS -10.7 mmol/L (-2-2); BLOOD GAS CARBOXYHEMOGLOBIN 1.3 % (0-4); BLOOD GAS HCO3 16 mmol/L (22-26); BLOOD GAS METHEMOGLOBIN 1.9 % (0-2); BLOOD GAS O2 HGB SATURATION 86 % (90-100); BLOOD GAS PCO2 41 mmHg (38-42); BLOOD GAS PO2 67 mmHg (61-120); BLOOD GAS TOTAL HGB 8.2 G/DL (12.0-16.0); TEMP CORR TO 98.6
[2016-09-01 18:22] LABS: CRITICAL VALUE YES; DRAW SITE ART LINE; FIO2 100 %; OXYGEN DEVICE VENTILATOR; STAT YES; VENT SETTINGS PC/AC
[2016-09-01] MEDS ORDERED: SODIUM BICARBONATE 8.4% INJ 50 MEQ/50 ML SYR IV ONE (20:00)
[2016-09-01] MEDS: niMODipine 30 MG CAP PO SCH (20:25)
[2016-09-01] MEDS ORDERED: SODIUM BICARBONATE 8.4% INJ 50 ML ONE (20:28)
[2016-09-01 20:39] LABS: BLOOD GAS BASE EXCESS -1.8 mmol/L (-2-2); BLOOD GAS CARBOXYHEMOGLOBIN 1.5 % (0-4); BLOOD GAS HCO3 22 mmol/L (22-26); BLOOD GAS METHEMOGLOBIN 1.7 % (0-2); BLOOD GAS O2 HGB SATURATION 95 % (90-100); BLOOD GAS OXYGEN CONTENT 11.5 Vol % (12.0-20.0); BLOOD GAS PCO2 34 mmHg (38-42); BLOOD GAS PO2 102 mmHg (61-120); BLOOD GAS TOTAL HGB 8.5 G/DL (12.0-16.0); CRITICAL VALUE NO; OXYGEN DEVICE VENTILATOR; TEMP CORR TO 98.6
[2016-09-01 20:41] LABS: DRAW SITE ART LINE; FIO2 100 %; STAT YES
[2016-09-01 21:07] LABS: MEAN CORPUSCULAR HGB CONC 36.9 % (32.0-36.0)
[2016-09-01] MEDS: MAGNESIUM HYDROXIDE SUSP 30 ML CUP PO SCH (22:42)
[2016-09-01 22:53] LABS: BICARBONATE 17.5 MEQ/L (21.0-32.0)
[2016-09-01 22:56] LABS: CALCIUM-PROTEIN CORRECTED 8.2 MG/DL (8.5-10.1); TOTAL BILIRUBIN ADULT 1.3 MG/DL (0.2-1.0)
[2016-09-01 22:58] LABS: POTASSIUM 3.5 MEQ/L (3.5-5.1)
[2016-09-02] VITALS (21 sets, daily range): BP systolic 120–167; BP diastolic 48–86; PULSE 86–125; RESP 28–30; TEMP 94–96.8; O2SAT 86–100
[2016-09-02] MEDS: niMODipine 30 MG CAP PO SCH ×6 (00:08→20:06)
[2016-09-02] MEDS: CISATRACURIUM INJ 100 MG in SODIUM CHLOR 0.9% 250 ML INJ 240 ML IV SCH ×5 (00:08→21:58)
[2016-09-02] MEDS: AZTREONAM INJ 2,000 MG in SODIUM CHLORIDE 0.9% INJ 100 ML IV SCH ×3 (00:09→14:51)
[2016-09-02] MEDS: metroNIDAZOLE 500 MG INJ 100 ML IV SCH ×3 (01:00→17:10)
[2016-09-02] MEDS: PROPOFOL 1000 MG/100 ML INJ 100 ML IV SCH ×5 (02:48→17:10)
[2016-09-02] MEDS: LACTULOSE SYRUP 20 GM/30 ML CUP PO SCH ×4 (02:48→20:31)
[2016-09-02] MEDS: RESP: ALBUTEROL 2.5 MG/IPRATROPIUM 0.5 MG NEB (SCH) NEB ×5 (02:54→19:48)
[2016-09-02] MEDS: CHLORHEXIDINE GLUCONATE 2 % 1 PACK (2 CLOTHS) TOP SCH (04:00)
[2016-09-02] MEDS: NOREPINEPHRINE INJ 16 MG in SODIUM CHLOR 0.9% 250 ML INJ 234 ML IV SCH ×4 (04:19→21:58)
[2016-09-02] MEDS: PHENYLEPHRINE INJ 160 MG in SODIUM CHLORID 0.9% 500 ML INJ 484 ML IV SCH ×5 (04:19→21:58)
[2016-09-02] MEDS: fentaNYL DRIP 250 ML IV SCH ×2 (04:23→12:25)
[2016-09-02] MEDS: POTASSIUM CHLOR 40 MEQ PREMIX 100 ML IV PRN ×3 (04:25→09:16)
[2016-09-02 04:42] LABS: BLOOD GAS BASE EXCESS -6.6 mmol/L (-2-2); BLOOD GAS CARBOXYHEMOGLOBIN 1.5 % (0-4); BLOOD GAS HCO3 17 mmol/L (22-26); BLOOD GAS O2 HGB SATURATION 96 % (90-100); BLOOD GAS OXYGEN CONTENT 12.8 Vol % (12.0-20.0); BLOOD GAS PCO2 27 mmHg (38-42); BLOOD GAS PO2 192 mmHg (61-120); BLOOD GAS TOTAL HGB 9.2 G/DL (12.0-16.0); CRITICAL VALUE NO; OXYGEN DEVICE VENTILATOR; TEMP CORR TO 98.6
[2016-09-02 04:43] LABS: DRAW SITE ART LINE; FIO2 100 %; STAT NO
[2016-09-02] MEDS: VANCOMYCIN INJ 1,250 MG in SODIUM CHLOR 0.9% 250 ML INJ 250 ML IV SCH ×2 (05:16→17:10)
[2016-09-02] MEDS: POTASSIUM CHLORIDE INJ 40 MEQ in SODIUM CHLOR 0.45% 1000 ML INJ 1,000 ML IV SCH ×4 (06:38→18:12)
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
[2016-09-02 07:36] LABS: CALCIUM-PROTEIN CORRECTED 8.3 MG/DL (8.5-10.1)
[2016-09-02 07:37] LABS: TOTAL BILIRUBIN ADULT 1.8 MG/DL (0.2-1.0)
[2016-09-02 07:38] LABS: BICARBONATE 19.5 MEQ/L (21.0-32.0)
[2016-09-02 07:40] LABS: POTASSIUM 2.8 MEQ/L (3.5-5.1)
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
[2016-09-02 08:03] LABS: AUTOMATED NEUTROPHIL # 20.1 TH/MM3 (1.8-7.7); BASOPHIL # 0.1 TH/MM3 (0-0.2); BASOPHIL % 0.4 % (0.0-2.0); EOSINOPHIL # 1.2 TH/MM3 (0-0.4); EOSINOPHIL % 4.9 % (0.0-4.0); HEMATOCRIT 25.4 % (35.0-46.0); LYMPH % 12.6 % (9.0-44.0); LYMPHOCYTE # 3.1 TH/MM3 (1.0-4.8); MEAN CELL VOLUME 85.9 FL (80.0-100.0); MEAN CORPUSCULAR HEMOGLOBIN 31.7 PG (27.0-34.0); MONO % 1.3 % (0.0-8.0); NEUT % 80.8 % (16.0-70.0); PLATELET COUNT 180 TH/MM3 (150-450); RED BLOOD COUNT 2.96 MIL/MM3 (4.00-5.30); RED CELL DISTRIBUTION WIDTH 14.4 % (11.6-17.2); WHITE BLOOD COUNT 24.9 TH/MM3 (4.0-11.0)
[2016-09-02 08:07] LABS: HEMO FLAGS AUTO DIFF
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
[2016-09-02 08:39] LABS: BANDS 20 % (0-6); BASOPHILS 1 % (0-2); EOSINOPHILS 9 % (0-4); METAMYELOCYTES 1 % (0-1); MYELOCYTES 3 % (0-0); NEUTROPHIL # MANUAL DIFF 21.9 TH/MM3 (1.8-7.7); POLYS (SEG NEUTROPHILS) 64 % (16-70); WBC DIFF SAMPLE 100
[2016-09-02 08:40] LABS: PLATELET ESTIMATE SMEAR NORMAL (NORMAL); PLATELET MORPHOLOGY NORMAL (NORMAL); SCAN/DIFF FINAL DIFF MANUAL
[2016-09-02] MEDS ORDERED: DESMOPRESSIN ACETATE 4 MCG/ML VIAL IV PUSH ONE ×2 (09:00→15:15)
[2016-09-02] MEDS: POTASSIUM CHLORIDE 25 MEQ EFFERVESCENT TAB PO SCH ×4 (09:00→20:37)
[2016-09-02] MEDS: MIDAZOLAM 100 MG/NS 100 ML DRIP Premix IV SCH ×2 (09:07→12:24)
[2016-09-02] MEDS: LEVOFLOXACIN 750 MG PREMIX INJ 150 ML IV SCH (09:09)
[2016-09-02] MEDS: POTASSIUM CHLOR 20 MEQ PREMIX 100 ML IV SCH ×2 (09:10→09:16)
[2016-09-02] MEDS: NYSTATIN 100,000 U/GM PWD 15 GM BTL TOPICAL SCH ×2 (09:14→20:32)
[2016-09-02] MEDS: DOCUSATE SODIUM 100 MG CAP PO SCH ×2 (09:15→20:29)
[2016-09-02] MEDS: BACITRACIN TOP OINT 15 GM TUBE TOP SCH ×2 (09:17→20:31)
[2016-09-02] MEDS: CHLORHEXIDINE 0.12% (ORAL KIT) 15 ML CUP MT SCH ×2 (09:17→20:07)
[2016-09-02] MEDS: levETIRAcetam INJ 500 MG in SODIUM CHLORIDE 0.9% INJ 100 ML IV SCH ×2 (09:17→20:30)
--- NOTE | 2016-09-02 09:21 | HHI.NSPN ---
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 with the patient on the same day, and personally performed and documented my assessment and findings in the medical record. Sodium above desired range Adjust fluid Maintain vent support ICP satisfactory (Alton Harmon MD) Dionicio Bennett Sep 02, 2016 09:21 Alton Harmon MD Sep 20, 2016 17:44
[2016-09-02] MEDS: EPOPROSTENOL NEB SOLUTION 50 NG/KG/MIN 100 ML NEB SCH ×4 (10:57→20:05)
[2016-09-02] MEDS: PANTOPRAZOLE INJ 80 MG in SODIUM CHLORIDE 0.9% INJ 100 ML IV SCH ×2 (10:57→18:12)
[2016-09-02 11:07] LABS: ALKALINE PHOSPHATASE 137 U/L (45-117); ALT (GPT) 22 U/L (10-53); ANION GAP 11 MEQ/L (5-15); BICARBONATE 18.7 MEQ/L (21.0-32.0); BLOOD UREA NITROGEN 8 MG/DL (7-18); CHLORIDE 135 MEQ/L (98-107); GLOMERULAR FILTRATION RATE 124 ML/MIN (>89); TOTAL BILIRUBIN ADULT 1.6 MG/DL (0.2-1.0)
[2016-09-02 11:08] LABS: AST (GOT) 64 U/L (15-37)
[2016-09-02 11:11] LABS: POTASSIUM 2.7 MEQ/L (3.5-5.1); SODIUM (NA) 165 MEQ/L (136-145)
[2016-09-02 12:53] LABS: BLOOD GAS BASE EXCESS -9.9 mmol/L (-2-2); BLOOD GAS CARBOXYHEMOGLOBIN 1.5 % (0-4); BLOOD GAS HCO3 15 mmol/L (22-26); BLOOD GAS METHEMOGLOBIN 2.2 % (0-2); BLOOD GAS O2 HGB SATURATION 89 % (90-100); BLOOD GAS OXYGEN CONTENT 10.4 Vol % (12.0-20.0); BLOOD GAS PCO2 27 mmHg (38-42); BLOOD GAS PO2 70 mmHg (61-120); BLOOD GAS TOTAL HGB 8.3 G/DL (12.0-16.0); CRITICAL VALUE YES; TEMP CORR TO 98.6
[2016-09-02 12:54] LABS: DRAW SITE ART LINE; FIO2 70 %; OXYGEN DEVICE VENTILATOR; STAT NO; ULNAR PULSE PRESENT; VENT SETTINGS PC/AC
[2016-09-02 13:40] LABS: ALT (GPT) 20 U/L (10-53); ANION GAP 12 MEQ/L (5-15); AST (GOT) 60 U/L (15-37); BICARBONATE 17.4 MEQ/L (21.0-32.0); BLOOD UREA NITROGEN 7 MG/DL (7-18); CHLORIDE 135 MEQ/L (98-107); GLOMERULAR FILTRATION RATE 124 ML/MIN (>89)
[2016-09-02 13:44] LABS: ALKALINE PHOSPHATASE 135 U/L (45-117)
[2016-09-02 13:45] LABS: TOTAL BILIRUBIN ADULT 1.4 MG/DL (0.2-1.0)
[2016-09-02 13:50] LABS: POTASSIUM 3.5 MEQ/L (3.5-5.1)
[2016-09-02 13:52] LABS: SODIUM (NA) 164 MEQ/L (136-145)
[2016-09-02] MEDS ORDERED: HYDROCORTISONE SOD SUCCINATE 250 MG VIAL IV SCH (14:00)
[2016-09-02] MEDS ORDERED: SODIUM BICARBONATE 8.4% INJ 50 MEQ/50 ML SYR IV PUSH ONE ×2 (14:30→18:00)
[2016-09-02] MEDS: SODIUM CHLORIDE 23.4% INJ 188 MEQ in SODIUM CHLOR 0.9% 1000 ML INJ 1,000 ML IV SCH ×2 (14:37→17:11)
[2016-09-02] MEDS: HYDROCORTISONE SOD SUCCINATE 100 MG VIAL IV SCH ×2 (14:51→21:44)
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
[2016-09-02 16:20] LABS: BLOOD GAS BASE EXCESS -10.2 mmol/L (-2-2); BLOOD GAS CARBOXYHEMOGLOBIN 1.6 % (0-4); BLOOD GAS HCO3 15 mmol/L (22-26); BLOOD GAS METHEMOGLOBIN 2.5 % (0-2); BLOOD GAS O2 HGB SATURATION 89 % (90-100); BLOOD GAS OXYGEN CONTENT 10.5 Vol % (12.0-20.0); BLOOD GAS PCO2 28 mmHg (38-42); BLOOD GAS PO2 72 mmHg (61-120); BLOOD GAS TOTAL HGB 8.3 G/DL (12.0-16.0); TEMP CORR TO 98.6
[2016-09-02 16:21] LABS: CRITICAL VALUE YES; DRAW SITE ART LINE; FIO2 75 %; NUMBER OF ARTERIAL PUNCTURES 0; OXYGEN DEVICE VENTILATOR; STAT NO; ULNAR PULSE PRESENT; VENT SETTINGS PC/AC
[2016-09-02 17:59] LABS: BICARBONATE 16.9 MEQ/L (21.0-32.0); MAGNESIUM 2.5 MG/DL (1.5-2.5); POTASSIUM 5.8 MEQ/L (3.5-5.1); TOTAL BILIRUBIN ADULT 1.7 MG/DL (0.2-1.0)
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
[2016-09-02] MEDS: VASOPRESSIN INJ 40 UNITS in DEXTROSE 5% IN WATER 100ML INJ 98 ML IV SCH ×2 (18:12)
[2016-09-02] MEDS: SODIUM CHLOR 0.45% 1000 ML INJ 1,000 ML IV SCH ×2 (18:33→21:44)
[2016-09-02 18:43] LABS: CALCIUM-PROTEIN CORRECTED 8.2 MG/DL (8.5-10.1)
[2016-09-02] MEDS ORDERED: CALCIUM CHLORIDE INJ 2 GM in SODIUM CHLORIDE 0.9% INJ 100 ML IV ONE (20:00)
[2016-09-02] MEDS ORDERED: SODIUM BICARBONATE 8.4% INJ 150 MEQ in DEXTROSE 5% IN WATE 1000ML INJ 1,000 ML IV SCH ×2 (20:00)
[2016-09-02] MEDS ORDERED: ALBUMIN HUMAN 5% 25 GM/500 ML BOTTLE IV SCH ×2 (20:00)
[2016-09-02] MEDS: SODIUM CHLOR 0.9% 1000 ML INJ 1,000 ML IV SCH ×2 (20:07→20:32)
[2016-09-02] MEDS: SODIUM BICARBONATE 8.4% INJ 150 MEQ in SODIUM CHLOR 0.45% 1000 ML INJ 1,000 ML IV SCH (20:30)
[2016-09-02] MEDS: MAGNESIUM HYDROXIDE SUSP 30 ML CUP PO SCH (20:31)
[2016-09-02] MEDS ORDERED: ALBUMIN HUMAN 25% 25 GM/100 ML BAGP IV ONE (21:36)
[2016-09-02] MEDS: ALBUMIN HUMAN 25% 25 GM/100 ML BAGP IV SCH (21:44)
--- NOTE | 2016-09-02 21:50 | RADRPT ---
EXAM DATE/TIME: 09/02/2016 21:24 [facility] COMPARISON: CHEST SINGLE AP, September 02, 2016, 5:25. INDICATIONS : Evaluate lung status. MEDICAL HISTORY : None. SURGICAL HISTORY : None. ENCOUNTER: Initial ACUITY: 1 day PAIN SCORE: Non-responsive. LOCATION: Bilateral chest FINDINGS: Endotracheal tube, nasogastric tube, and left subclavian central venous catheter remain in place. Sev ere bilateral diffuse pulmonary parenchymal opacity is again seen with increased confluence when comp ared to the prior study. No evidence of pneumothorax. CONCLUSION: Increase in severity of bilateral diffuse pulmonary parenchymal opacity. Derek York MD on September 02, 2016 at 21:45 Board Certified Radiologist. This report was verified electronically.
[2016-09-02] MEDS ORDERED: ALBUMIN HUMAN 25% 25 GM/100 ML BAGP IV SCH (22:00)
[2016-09-02] MEDS ORDERED: DOPamine INJ PREMIX 500 ML ONE (22:25)
[2016-09-02] MEDS ORDERED: TERBUTALINE INJ 1 MG/ML AMP SQ PRN (22:30)
[2016-09-02] MEDS ORDERED: DOPamine INJ 1,600 MG in DEXTROSE 5% IN WATER INJ 240 ML IV SCH ×2 (22:30)
[2016-09-02] MEDS ORDERED: CALCIUM GLUCONATE INJ 2 GM in SODIUM CHLORIDE 0.9% INJ 100 ML IV ONE (23:00)
[2016-09-02] MEDS ORDERED: FUROSEMIDE 40 MG/4 ML VIAL IV PUSH SCH (23:00)
[2016-09-02 23:07] LABS: BLOOD GAS BASE EXCESS -17.6 mmol/L (-2-2); BLOOD GAS CARBOXYHEMOGLOBIN 1.4 % (0-4); BLOOD GAS HCO3 10 mmol/L (22-26); BLOOD GAS METHEMOGLOBIN 2.2 % (0-2); BLOOD GAS O2 HGB SATURATION 82 % (90-100); BLOOD GAS OXYGEN CONTENT 8.5 Vol % (12.0-20.0); BLOOD GAS PCO2 30 mmHg (38-42); BLOOD GAS PO2 67 mmHg (61-120); BLOOD GAS TOTAL HGB 7.3 G/DL (12.0-16.0); CRITICAL VALUE YES; OXYGEN DEVICE VENTILATOR; TEMP CORR TO 98.6
[2016-09-02 23:08] LABS: DRAW SITE ART LINE; FIO2 100 %; STAT YES
[2016-09-02] MEDS ORDERED: SODIUM BICARBONATE 8.4% INJ 50 ML ONE ×2 (23:08→23:57)
[2016-09-02] MEDS ORDERED: SODIUM BICARBONATE 8.4% INJ 50 MEQ/50 ML SYR IV ONE ×2 (23:15→23:45)
[2016-09-02 23:41] LABS: ANION GAP 15 MEQ/L (5-15); BLOOD UREA NITROGEN 9 MG/DL (7-18); CHLORIDE 129 MEQ/L (98-107); GLOMERULAR FILTRATION RATE 83 ML/MIN (>89); MAGNESIUM 2.5 MG/DL (1.5-2.5)
[2016-09-02] MEDS ORDERED: SODIUM POLYSTYRENE SULFONATE SUSP 15 GM/60 ML CUP PO ONE (23:45)
[2016-09-02] MEDS ORDERED: DEXTROSE 50% IN WATER 50 ML SYRINGE IV ONE (23:45)
[2016-09-02] MEDS ORDERED: INSULIN HUMAN REGULAR 1,000 UNITS/10 ML VIAL IV PUSH ONE (23:45)
[2016-09-02] MEDS ORDERED: FUROSEMIDE 20 MG/2 ML VIAL IV PUSH ONE (23:45)
[2016-09-02 23:46] LABS: POTASSIUM 7.4 MEQ/L (3.5-5.1); SODIUM (NA) 157 MEQ/L (136-145)
[2016-09-02 23:47] LABS: ALKALINE PHOSPHATASE 131 U/L (45-117)
[2016-09-02] MEDS ORDERED: DEXTROSE 50% IN WATER 50 ML SYRINGE ONE (23:59)
[2016-09-03] VITALS (9 sets, daily range): BP systolic 114–121; BP diastolic 42–51; PULSE 89–130; RESP 30; TEMP 97.9–98.8; O2SAT 74–94
[2016-09-03] MEDS: RESP: ALBUTEROL 2.5 MG/IPRATROPIUM 0.5 MG NEB (SCH) NEB ×3 (00:21→07:45)
[2016-09-03 00:35] LABS: ALT (GPT) 71 U/L (10-53); AST (GOT) 20 U/L (15-37)
[2016-09-03] MEDS: AZTREONAM INJ 2,000 MG in SODIUM CHLORIDE 0.9% INJ 100 ML IV SCH ×2 (01:03→10:24)
[2016-09-03] MEDS: metroNIDAZOLE 500 MG INJ 100 ML IV SCH ×2 (01:03→10:26)
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
[2016-09-03] MEDS: LACTULOSE SYRUP 20 GM/30 ML CUP PO SCH ×2 (03:00→09:00)
[2016-09-03] MEDS: CISATRACURIUM INJ 100 MG in SODIUM CHLOR 0.9% 250 ML INJ 240 ML IV SCH ×2 (03:06→06:44)
[2016-09-03] MEDS: EPOPROSTENOL NEB SOLUTION 50 NG/KG/MIN 100 ML NEB SCH ×2 (03:07)
[2016-09-03] MEDS: niMODipine 30 MG CAP PO SCH ×3 (04:00→08:00)
[2016-09-03 04:25] LABS: APTT (PATIENT) 67.4 SEC (24.3-30.1); INTERNATIONAL NORMALIZED RATIO 1.4 RATIO; PROTHROMBIN TIME - PATIENT 15.7 SEC (9.8-11.6)
[2016-09-03] MEDS: ALBUMIN HUMAN 25% 25 GM/100 ML BAGP IV SCH ×2 (05:15→10:25)
[2016-09-03] MEDS: CHLORHEXIDINE GLUCONATE 2 % 1 PACK (2 CLOTHS) TOP SCH (05:16)
[2016-09-03 05:24] LABS: AUTOMATED NEUTROPHIL # 26.4 TH/MM3 (1.8-7.7); BASOPHIL # 0.3 TH/MM3 (0-0.2); BASOPHIL % 0.9 % (0.0-2.0); EOSINOPHIL # 0.3 TH/MM3 (0-0.4); EOSINOPHIL % 0.9 % (0.0-4.0); HEMATOCRIT 23.6 % (35.0-46.0); LYMPH % 14.6 % (9.0-44.0); LYMPHOCYTE # 4.8 TH/MM3 (1.0-4.8); MEAN CELL VOLUME 87.7 FL (80.0-100.0); MEAN CORPUSCULAR HEMOGLOBIN 31.6 PG (27.0-34.0); MONO % 2.3 % (0.0-8.0); NEUT % 81.3 % (16.0-70.0); PLATELET COUNT 160 TH/MM3 (150-450); RED BLOOD COUNT 2.69 MIL/MM3 (4.00-5.30); RED CELL DISTRIBUTION WIDTH 14.8 % (11.6-17.2); WHITE BLOOD COUNT 32.5 TH/MM3 (4.0-11.0)
[2016-09-03 05:28] LABS: HEMO FLAGS AUTO DIFF
[2016-09-03] MEDS: SODIUM BICARBONATE 8.4% INJ 150 MEQ in SODIUM CHLOR 0.45% 1000 ML INJ 1,000 ML IV SCH (05:35)
[2016-09-03 05:36] LABS: BLOOD GAS BASE EXCESS -9.9 mmol/L (-2-2); BLOOD GAS CARBOXYHEMOGLOBIN 1.7 % (0-4); BLOOD GAS HCO3 15 mmol/L (22-26); BLOOD GAS METHEMOGLOBIN 1.7 % (0-2); BLOOD GAS O2 HGB SATURATION 82 % (90-100); BLOOD GAS OXYGEN CONTENT 11.5 Vol % (12.0-20.0); BLOOD GAS PCO2 30 mmHg (38-42); BLOOD GAS PO2 54 mmHg (61-120); BLOOD GAS TOTAL HGB 9.9 G/DL (12.0-16.0); CRITICAL VALUE YES; TEMP CORR TO 98.6
[2016-09-03 05:37] LABS: DRAW SITE ART LINE; FIO2 100 %; OXYGEN DEVICE VENTILATOR; STAT YES; VENT SETTINGS PRVC/AC
[2016-09-03] MEDS ORDERED: PHARMACY ORDERED LAB ONE (05:45)
[2016-09-03 06:17] LABS: ALKALINE PHOSPHATASE 130 U/L (45-117); AST (GOT) 90 U/L (15-37); BLOOD UREA NITROGEN 14 MG/DL (7-18); GLOMERULAR FILTRATION RATE 77 ML/MIN (>89)
[2016-09-03 06:18] LABS: ALT (GPT) 22 U/L (10-53); ANION GAP 14 MEQ/L (5-15); BICARBONATE 18.2 MEQ/L (21.0-32.0); CHLORIDE 128 MEQ/L (98-107); TOTAL BILIRUBIN ADULT 1.7 MG/DL (0.2-1.0); VANCOMYCIN TROUGH 14.1 MCG/ML (5.0-10.0)
[2016-09-03 06:20] LABS: SODIUM (NA) 160 MEQ/L (136-145)
[2016-09-03] MEDS: VANCOMYCIN INJ 1,250 MG in SODIUM CHLOR 0.9% 250 ML INJ 250 ML IV SCH (06:43)
[2016-09-03] MEDS: HYDROCORTISONE SOD SUCCINATE 100 MG VIAL IV SCH (06:43)
[2016-09-03] MEDS: NOREPINEPHRINE INJ 16 MG in SODIUM CHLOR 0.9% 250 ML INJ 234 ML IV SCH (06:44)
[2016-09-03] MEDS: PANTOPRAZOLE INJ 80 MG in SODIUM CHLORIDE 0.9% INJ 100 ML IV SCH (06:44)
[2016-09-03] MEDS: PHENYLEPHRINE INJ 160 MG in SODIUM CHLORID 0.9% 500 ML INJ 484 ML IV SCH (06:44)
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
[2016-09-03] MEDS ORDERED: FUROSEMIDE 40 MG/4 ML VIAL IV PUSH ONE (07:45)
[2016-09-03] MEDS: MIDAZOLAM 100 MG/NS 100 ML DRIP Premix IV SCH (07:47)
[2016-09-03] MEDS: VASOPRESSIN INJ 40 UNITS in DEXTROSE 5% IN WATER 100ML INJ 98 ML IV SCH ×2 (07:47)
[2016-09-03] MEDS ORDERED: PHYTONADIONE INJ 10 MG in DEXTROSE 5% IN WATER INJ 50 ML IV ONE ×2 (08:00)
[2016-09-03] MEDS ORDERED: BUMETANIDE INJ 1 MG/4 ML VIAL IV PUSH ONE (08:00)
[2016-09-03] MEDS ORDERED: MICAFUNGIN INJ 100 MG in SODIUM CHLORIDE 0.9% INJ 100 ML IV SCH (08:00)
[2016-09-03] MEDS: CHLORHEXIDINE 0.12% (ORAL KIT) 15 ML CUP MT SCH (08:00)
[2016-09-03] MEDS: DOCUSATE SODIUM 100 MG CAP PO SCH (09:00)
[2016-09-03] MEDS: POTASSIUM CHLORIDE 25 MEQ EFFERVESCENT TAB PO SCH ×2 (09:00)
[2016-09-03 09:12] LABS: BLOOD GAS BASE EXCESS -14.8 mmol/L (-2-2); BLOOD GAS CARBOXYHEMOGLOBIN 1.2 % (0-4); BLOOD GAS HCO3 14 mmol/L (22-26); BLOOD GAS METHEMOGLOBIN 1.5 % (0-2); BLOOD GAS O2 HGB SATURATION 35 % (90-100); BLOOD GAS OXYGEN CONTENT 4.7 Vol % (12.0-20.0); BLOOD GAS PCO2 52 mmHg (38-42); BLOOD GAS PO2 30 mmHg (61-120); BLOOD GAS TOTAL HGB 9.5 G/DL (12.0-16.0); CRITICAL VALUE YES; DRAW SITE ART LINE; FIO2 100 %; OXYGEN DEVICE VENTILATOR; STAT YES; TEMP CORR TO 98.6; VENT SETTINGS PRVC 30/550/+14/1.1I
[2016-09-03 09:45] LABS: BANDS 7 % (0-6); BASOPHILS 1 % (0-2); CORRECTED NUCLEATED RBC 2 /100 WBC (0-0); METAMYELOCYTES 7 % (0-1); MYELOCYTES 2 % (0-0); NEUTROPHIL # MANUAL DIFF 27.6 TH/MM3 (1.8-7.7); POLYS (SEG NEUTROPHILS) 69 % (16-70); WBC DIFF SAMPLE 100
[2016-09-03] MEDS: BACITRACIN TOP OINT 15 GM TUBE TOP SCH (09:47)
[2016-09-03] MEDS: NYSTATIN 100,000 U/GM PWD 15 GM BTL TOPICAL SCH (09:47)
[2016-09-03 09:48] LABS: SCAN/DIFF FINAL DIFF MANUAL
--- NOTE | 2016-09-03 09:55 | HHI.NSPN ---
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 interhemispheric fissure. Repeat CT brain demonstrated unchanged small subacute parenchymal haemorrhages of posterolateral hemispheres; right ventriculostomy catheter in place and bolt removed, no ventriculomegaly TCD demonstrated very mild left-sided vasospasm ICP sustained in 20s, spiked to 38 Patient dilated & fixed, no corneal response Worsening clinical condition this morning Sodium 160 this morning Leukocytosis with interval increase Hypophosphatemia, resolved Hypokalemia, resolved Hyperkalemia, resolved In DI & ARDS Patient continues to be critical but respiratory status has stablised POD #3 () s/p: Right frontal twist drill for ventriculostomy catheter placement Plan: Monitor ICP Frequent neuro checks Maintain sodium between 145-155 Replace electrolytes PRN Non-chemical DVT prophylaxis Ulcer prophylaxis Critical care management per Lodging Facilities Attendant (Dionicio Bennett) Attending Statement I have personally seen and examined the patient on 09/03/16. Pertinent documentation and study results have been reviewed by the undersigned. I have personally developed the treatment plan and performed medical decision making. Discussed extensively with intensivists throughout the evening and this morning. Main issue at present is ARDS, likely compromising venous return and increasing ICP Patient has not been stable for transport to CT angiography to determine if any vasospasm persists, but negative on most recent CTA. Remains in critical condition, prognosis guarded Agree with findings, exam, and treatment plan as noted above. (Alton Harmon MD) Dionicio Bennett Sep 03, 2016 09:55 Alton Harmon MD Sep 04, 2016 20:34
[2016-09-03] MEDS ORDERED: BUMETANIDE INJ 100 ML IV SCH (10:00)
[2016-09-03] MEDS: LEVOFLOXACIN 750 MG PREMIX INJ 150 ML IV SCH (10:24)
[2016-09-03] MEDS: levETIRAcetam INJ 500 MG in SODIUM CHLORIDE 0.9% INJ 100 ML IV SCH (10:25)
[2016-09-03] MEDS ORDERED: SODIUM BICARBONATE 8.4% INJ 50 MEQ/50 ML SYR IV PUSH ONE (10:30)
[2016-09-03] MEDS ORDERED: CALCIUM CHLORIDE 10% SOLN 1 GRAM/10 ML SYR IV ONE (13:18)
[2016-09-03] MEDS ORDERED: EPINEPHrine HCL (1:1000) 30 MG/30 ML VIAL IV ONE (13:18)
[2016-09-03] MEDS ORDERED: EPINEPHrine HCL (1:10,000) 1 MG/10 ML SYRINGE IV ONE (13:18)
[2016-09-03] MEDS ORDERED: SODIUM BICARBONATE 8.4% INJ 50 MEQ/50 ML SYR IV ONE (13:18)
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
[2016-09-05] MEDS ORDERED: HYDROCORTISONE SOD SUCCINATE 100 MG VIAL IV SCH (22:00)
--- NOTE | 2016-09-05 23:23 | PD.PROCEDR ---
Procedure Note Procedure Date: 09/03/16 Procedure: Cardiopulmonary resucitation Indication: Asystolic cardiac arrest Details of procedure: Pt with severe TBI, ARDS, refractory shock. She developed asystole cardiac arrest. Per ACLS protocol pt received CPR, manual bag-valve ventilation via ETT , multiple dose of epinephrine, CaCl2, bicarb. After 23 minutes resucitation we were unable to restore spontaneous circulation. Pt was pronounced at 11 :08 hours. The family was notified at bedside. Rajani Winslow MD Sep 05, 2016 23:23
== END 2016-09-03 13:19 | disposition expired | DRG 955 ==
LOC: NEPI 23:17 → EDBD 23:54 → NEDA 23:54 → N03B 08-25 00:08
PROVIDERS: ADMIT Surgery; ATTEND Surgery
PROC: 5A1955Z Respiratory Ventilation, Greater than 96 Consecutive Hours (ICD-10-PCS; 2016-08-24)
PROC: 0PSF04Z Reposition Right Humeral Shaft with Internal Fixation Device, Open Approach (ICD-10-PCS; 2016-08-25)
PROC: 0RSL0ZZ Reposition Right Elbow Joint, Open Approach (ICD-10-PCS; 2016-08-25)
PROC: 02HV33Z Insertion of Infusion Device into Superior Vena Cava, Percutaneous Approach (ICD-10-PCS; 2016-08-25)
PROC: 4A103BD Monitoring of Intracranial Pressure, Percutaneous Approach (ICD-10-PCS; 2016-08-25)
PROC: 00H032Z Insertion of Monitoring Device into Brain, Percutaneous Approach (ICD-10-PCS; principal; 2016-08-25 10:08)
PROC: 03HY32Z Insertion of Monitoring Device into Upper Artery, Percutaneous Approach (ICD-10-PCS; 2016-08-30)
PROC: 009630Z Drainage of Cerebral Ventricle with Drainage Device, Percutaneous Approach (ICD-10-PCS; 2016-08-31)
PROC: 5A12012 Performance of Cardiac Output, Single, Manual (ICD-10-PCS; 2016-09-03)
PROC: 30233N1 Transfusion of Nonautologous Red Blood Cells into Peripheral Vein, Percutaneous Approach (ICD-10-PCS; 2016-09-03)
DX: S42.411B Displaced simple supracondylar fracture without intercondylar fracture of right humerus, initial encounter for open fracture; J96.01 Acute respiratory failure with hypoxia; D65 Disseminated intravascular coagulation [defibrination syndrome]; R65.21 Severe sepsis with septic shock; G93.6 Cerebral edema; D62 Acute posthemorrhagic anemia; J69.0 Pneumonitis due to inhalation of food and vomit; A41.9 Sepsis, unspecified organism; E87.0 Hyperosmolality and hypernatremia; J98.11 Atelectasis; S42.411A Displaced simple supracondylar fracture without intercondylar fracture of right humerus, initial encounter for closed fracture; I67.848 Other cerebrovascular vasospasm and vasoconstriction; E23.2 Diabetes insipidus; J80 Acute respiratory distress syndrome; S20.212A Contusion of left front wall of thorax, initial encounter; S30.1XXA Contusion of abdominal wall, initial encounter; S42.109A Fracture of unspecified part of scapula, unspecified shoulder, initial encounter for closed fracture; S90.511A Abrasion, right ankle, initial encounter; S53.104A Unspecified dislocation of right ulnohumeral joint, initial encounter; S60.511A Abrasion of right hand, initial encounter; R40.2432 Glasgow coma scale score 3-8, at arrival to emergency department; E83.39 Other disorders of phosphorus metabolism; E87.6 Hypokalemia; G93.2 Benign intracranial hypertension; E87.70 Fluid overload, unspecified; I27.2 Other secondary pulmonary hypertension; I46.9 Cardiac arrest, cause unspecified; E87.5 Hyperkalemia; R73.9 Hyperglycemia, unspecified; L53.9 Erythematous condition, unspecified; V47.5XXA Car driver injured in collision with fixed or stationary object in traffic accident, initial encounter; Y92.410 Unspecified street and highway as the place of occurrence of the external cause
CPT/HCPCS: 36430; 36556; 36600; 36620; 61210; 70450; 70486; 70496; 70498; 71010; 71260; 72125; 72170; 73060; 73070; 73560; 73600; 74177; 76000; 76705; 76937; 80048; 80053; 80202; 80307; 81001; 81003; 82435; 82533; 82565; 82805; 82947; 82948; 83605; 83735; 83930; 83935; 84100; 84132; 84155; 84295; 84300; 84520; 85007; 85025; 85027; 85384; 85610; 85730; 86403; 86850; 86900; 86901; 86920; 87040; 87070; 87086; 87147; 87186; 87205; 87641; 92950; 93306; 93886; 94002; 94003; 94640; 94664; 94770; 94799; 95819; 96374; 99291; C1713; C9113; G0390; J0131; J0171; J0295; J0461; J0610; J1170; J1200; J1265; J1325; J1580; J1720; J1815; J1940; J1953; J1956; J2248; J2250; J2270; J2370; J2597; J3010; J3370; J3430; J3475; J3480; J7030; J7040; J7050; L0150; L0172; P9016; P9045; P9047; Q9967